=== PATIENT | male | born 1975 | race Two or more races ===

== ENCOUNTER 2020-09-19 17:50 | Emergency (ER) | payer OTHER, SELFPAY ==
[2020-09-19 18:16] VITALS: BP 154/83; PULSE 79; RESP 20; TEMP 36.3; O2SAT 99; BMI 24.0
[2020-09-19 18:22] VITALS: RESP 20
--- NOTE | 2020-09-19 18:27 | PC.NURSE ---
Pt arrived w/ ems, cooperative w/ changeover. Evaluated w/ learning and development assistant. Pt alert, affect even, reports hx depression and SI attempt- states he attempted to hang himself while living in [place], and then attempted to OD within past few months. Pt states he did not seek treatment for last attempt, but was hospitalized in [place]. Pt states he uses Heroin and cocaine occasionally- last used heroin 4 days ago. Pt states he uses intermittently, states that he is not dependent, does not anticipate withdrawal.
[2020-09-19 19:19] LABS: Amphetamine Screen Urine Not Detected (Not Detect); Barbiturates, Urine Not Detected (Not Detect); Benzodiazepines Screen Urine Not Detected (Not Detect); Cannabinoid Screen Urine Not Detected (Not Detect); Cocaine Screen Urine POSITIVE (Not Detect); Opiate Screen Urine POSITIVE (Not Detect); Phencyclidine Screen Urine Not Detected (Not Detect)
--- NOTE | 2020-09-19 19:50 | PC.NURSE ---
Patient wandering in hallway, expressing need well, calm, stable behavior, no distress reported, [facility] faxed/called/spoke with Juliana/confirmed receipt of referral/no ETA, will continue to monitor.
[2020-09-19 20:17] LABS: Basophils Percent Auto 0.1 % (0-2); Eosinophils Absolute Auto 0.1 X10*3/uL (0.0-0.4); Eosinophils Percent Auto 1.4 % (0-4); Hematocrit 38.9 % (42-52); Hemoglobin 12.6 g/dl (14.0-18.0); Imm Gran Abs Auto 0.02 X10*3/uL (0.00-0.03); Imm Gran Pct Auto 0.3 % (0.0-0.4); Lymphocytes Absolute Auto 2.1 X10*3/uL (1.2-4.9); MANUAL DIFF FLAG NO; Mean Corpuscular HGB Conc 32.4 g/dl (31.0-36.0); Mean Corpuscular Hemoglobin 26.7 pg (27.0-33.0); Mean Corpuscular Volume 82.4 fL (80-98); Mean Platelet Volume 8.6 fL (9.4-12.4); Monocytes Absolute Auto 0.8 X10*3/uL (0.1-1.2); Monocytes Percent Auto 11.3 % (2-11); Neutrophils Absolute Auto 4.2 X10*3/uL (2.0-8.3); Neutrophils Percent Auto 57.9 % (45-73); Platelet Count 290 X10*3/uL (160-400); Red Blood Count 4.72 X10*6/uL (4.60-5.80); Red Cell Distribution Width 17.2 % (11.0-16.0); White Blood Count 7.3 X10*3/uL (4.8-10.8)
[2020-09-19 20:30] LABS: COVID-19 Test Negative (Negative); IDNOW Serial# 9DD0AD1C
[2020-09-19 20:34] LABS: Ethanol < 10 mg/dL
[2020-09-19 20:37] LABS: Acetaminophen LAB < 1 mcg/mL (<30); Alanine Aminotransferase 44 U/L (0-40); Albumin Level 4.6 g/dL (3.5-5.0); Alkaline Phosphatase 60 U/L (39-117); Anion Gap 13 (12-20); Aspartate Amino Transferase 33 U/L (5-37); Bilirubin Total 0.3 mg/dL (0.0-1.0); Blood Urea Nitrogen 7 mg/dL (9-16); Calcium 9.1 mg/dL (8.4-10.2); Carbon Dioxide 30 mmol/L (22-29); Chloride 100 mmol/L (96-108); Creatinine Clr Calc Pharmacy 97.6; Estimated Glomerular Filt Rate > 60; Glucose Random 81 mg/dL (60-115); Potassium 4.2 mmol/l (3.3-5.1); Salicylate < 5.0 mg/dL (15-30); Sodium 139 mmol/L (135-145); Total Protein 7.8 g/dL (6.5-8.0)
--- NOTE | 2020-09-19 20:47 | PC.NURSE ---
DANIELA called again/spoke with Rachel/updated the lab results/notified that patient will be seen at 2300, patient made aware, will continue to monitor.
--- NOTE | 2020-09-19 20:52 | ED_ITS ---
HPI - Psych General Chief Complaint: Psychiatric Symptoms Stated Complaint: si with plan Time Seen by Provider: 09/19/20 18:02 Source: patient Mode of arrival: ambulatory Limitations: no limitations History of Present Illness HPI Narrative: Patient comes emergency room complaining of worsening depression. Patient states his depression has been gotten worse over the last month and half. Patient states he has been having problems with his ex-, she is not allowing him to see his child. Patient states that he is planning to overdose. MD complaint: suicidal ideation and feels depressed Related Data Home Medications Medication Instructions Recorded Confirmed atorvastatin 40 mg tablet 40 mg PO DAILY 09/07/20 divalproex 500 mg tablet,delayed 1,000 mg PO BEDTIME tab 09/07/20 release docusate sodium 100 mg capsule 100 mg PO BID PRN 09/07/20 duloxetine 60 mg capsule,delayed 60 mg PO DAILY 09/07/20 release fenofibrate nanocrystallized 145 145 mg PO DAILY 09/07/20 mg tablet haloperidol 20 mg tablet 20 mg PO BEDTIME 09/07/20 haloperidol 5 mg tablet 5 mg PO DAILY 09/07/20 mecobalamin (vitamin B12) 1,000 1,000 mcg PO DAILY 09/07/20 mcg chewable tablet methocarbamol 750 mg tablet 750 mg PO QID PRN 09/07/20 omega-3 fatty acids-fish oil 360 3 cap PO DAILY cap 09/07/20 mg-1,200 mg capsule omeprazole 20 mg capsule,delayed 20 mg PO DAILY 09/07/20 release prazosin 5 mg capsule 5 mg PO BEDTIME 09/07/20 Previous Rx's Medication Instructions Recorded gabapentin 300 mg capsule 600 mg PO TID 30 Days #180 cap 07/27/20 multivitamin 1 tab PO DAILY 30 Days #30 tab 09/07/20 clonazepam 0.5 mg tablet 0.5 mg PO TID PRN 30 Days #90 tab 09/08/20 tramadol 50 mg tablet 50 mg PO Q8H PRN 30 Days #90 tab 09/08/20 Allergies Allergy/AdvReac Type Severity Reaction Status Date / Time No Known Allergies Allergy Verified 08/15/20 06:43 [No Known Allergies*] Review of Systems Review of Systems: Constitutional : No Weight loss, No Fever, No Chills, No Night Sweats, No Fatigue, No Malaise ENT/Mouth : No Hearing loss, No Ear Pain, No Nasal Congestion, No Sinus Pain, No Hoarseness, No sore throat, No Rhinorrhea, No Swallowing Difficulty Eyes: No Eye Pain, No Swelling, No Redness, No Foreign Body, No Discharge, No Vision Changes Cardiovascular : No Chest Pain, No SOB, No Dyspnea on Exertion, No Orthopnea, No Edema, No Palpitations Respiratory : No Cough, No Sputum, No Wheezing, No Smoke Exposure, No Dyspnea Gastrointestinal : No Nausea, No Vomiting, No Diarrhea, No Constipation, No abdominal Pain, No Hematochezia, No Melena Genitourinary : no irregular bleeding, No Dysuria, No Urinary Frequency, No Hematuria, No Urinary Incontinence, No Urgency, No Flank Pain, No Urinary Flow Changes, No Hesitancy Musculoskeletal : No joint pain, No Myalgias, No Joint Swelling Skin : No Skin Lesions, No rash Neuro : No Weakness, No Numbness, No Paresthesias, No Loss of Consciousness, No Dizziness, No Headache Psych : Patient complaining of depression, suicidal ideation, no homicidal ideation Heme/Lymph: No Bruising, No Bleeding,No Lymphadenopathy Endocrine : No Polyuria, No Polydipsia, No Temperature Intolerance [facility] Past Medical History Medical History (Updated 09/19/20 @ 21:03 by Lili Montgomery MD) Auditory hallucinations Depression Psychotic disorder Surgical History (Updated 08/15/20 @ 06:43 by SANTOS Arevalo) History of lumbar fusion Family History Family History (Updated 08/15/20 @ 06:44 by SANTOS Arevalo) Father No problems noted. Mother Hypertension Social History Social History Smoking Status: Current every day smoker Use of substances other than those prescribed or required for medical reasons: Yes Substance Use Type: Crack/Cocaine and Heroin Substance Use Frequency: Occasionally Last Used Substance: Days (ago) Advance Directives: No Advance Directives Information Provided: Yes Physical Exam Vital Signs: Vital Signs: Last Vital Signs Temp 97.4 F 09/19/20 18:16 Pulse 79 09/19/20 18:16 Resp 20 09/19/20 18:22 BP 154/83 H 09/19/20 18:16 Pulse Ox 99 09/19/20 18:16 Body Mass Index 24.0 Appearance: Alert. Oriented X3. No acute distress. Eyes: Pupils equal, round and reactive to light. ENT: Pharynx normal. Neck: Normal inspection. Neck supple. No lymph nodes noted. No crepitus CVS: Normal heart rate and rhythm. Pulses normal. Normal S1 and S2 Respiratory: No respiratory distress. Breath sounds normal. No Wheezing. No r ales Abdomen: Soft and nontender. No rigidity. No distention. good BS x4 Skin: Skin warm and dry. Normal skin color. Normal skin turgor. Extremities: No lower extremity edema. No lower extremity edema. No Lacerations. No Rash Neuro: Oriented X 3. No motor deficit. No sensory deficit. Moving all extermities. No slurred speech. Course Course Course Narrative: Behavioral health network consult pending MDM - Psych Restraints Face to Face Assessment: Face to Face Assessment: Current Situation: After assessment of the patient, a review of the pertinent medical record and a discussion with nursing staff, I feel the patient requires a restrain intervention. Reaction To: [] Medical Condition: [] Behavioral State: [] Continued Need: [] Lab Data Result diagrams: 09/19/20 20:07 09/19/20 20:08 Labs: Lab Results 09/19/20 09/19/20 09/19/20 Range/Units 18:38 20:07 20:07 WBC 7.3 (4.8-10.8) X10*3/uL RBC 4.72 (4.60-5.80) X10*6/uL Hgb 12.6 L (14.0-18.0) g/dl Hct 38.9 L (42-52) % MCV 82.4 (80-98) fL MCH 26.7 L (27.0-33.0) pg MCHC 32.4 (31.0-36.0) g/dl RDW 17.2 H (11.0-16.0) % Plt Count 290 (160-400) X10*3/uL MPV 8.6 L (9.4-12.4) fL Immature Gran % (Auto) 0.3 (0.0-0.4) % Neut % (Auto) 57.9 (45-73) % Lymph % (Auto) 29.0 (20-40) % [place] % (Auto) 11.3 H (2-11) % Eos % (Auto) 1.4 (0-4) % Baso % (Auto) 0.1 (0-2) % Lymph # (Auto) 2.1 (1.2-4.9) X10*3/uL [place] # (Auto) 0.8 (0.1-1.2) X10*3/uL Eos # (Auto) 0.1 (0.0-0.4) X10*3/uL Baso # (Auto) 0.0 (0.0-0.2) X10*3/uL Abs Immat Gran (auto) 0.02 (0.00-0.03) X10*3/uL Absolute Neuts (auto) 4.2 (2.0-8.3) X10*3/uL Absolute Nucleated RBC 0.000 (0.0-0.012) X10*3/uL Nucleated RBC % (auto) 0.0 (0.0-0.2) /100WBC Sodium (135-145) mmol/L Potassium (3.3-5.1) mmol/l Chloride (96-108) mmol/L Carbon Dioxide (22-29) mmol/L Anion Gap (12-20) BUN (9-16) mg/dL Creatinine (0.5-1.4) mg/dL Estim Creat Clear Calc Estimated GFR Random Glucose (60-115) mg/dL Calcium (8.4-10.2) mg/dL Total Bilirubin (0.0-1.0) mg/dL AST (5-37) U/L ALT (0-40) U/L Alkaline Phosphatase (39-117) U/L Total Protein (6.5-8.0) g/dL Albumin (3.5-5.0) g/dL Salicylates (15-30) mg/dL Urine Opiates Screen POSITIVE H (Not Detect) Acetaminophen (<30) mcg/mL Ur Barbiturates Screen Not Detected (Not Detect) Ur Phencyclidine Scrn Not Detected (Not Detect) Ur Amphetamines Screen Not Detected (Not Detect) U Benzodiazepines Scrn Not Detected (Not Detect) Urine Cocaine Screen POSITIVE H (Not Detect) U Marijuana (THC) Screen Not Detected (Not Detect) Ethyl Alcohol mg/dL COVID-19 (BEN) Negative (Negative) COVID-19 Clin Com See Note 09/19/20 09/19/20 Range/Units 20:08 20:08 WBC (4.8-10.8) X10*3/uL RBC (4.60-5.80) X10*6/uL Hgb (14.0-18.0) g/dl Hct (42-52) % MCV (80-98) fL MCH (27.0-33.0) pg MCHC (31.0-36.0) g/dl RDW (11.0-16.0) % Plt Count (160-400) X10*3/uL MPV (9.4-12.4) fL Immature Gran % (Auto) (0.0-0.4) % Neut % (Auto) (45-73) % Lymph % (Auto) (20-40) % [place] % (Auto) (2-11) % Eos % (Auto) (0-4) % Baso % (Auto) (0-2) % Lymph # (Auto) (1.2-4.9) X10*3/uL [place] # (Auto) (0.1-1.2) X10*3/uL Eos # (Auto) (0.0-0.4) X10*3/uL Baso # (Auto) (0.0-0.2) X10*3/uL Abs Immat Gran (auto) (0.00-0.03) X10*3/uL Absolute Neuts (auto) (2.0-8.3) X10*3/uL Absolute Nucleated RBC (0.0-0.012) X10*3/uL Nucleated RBC % (auto) (0.0-0.2) /100WBC Sodium 139 (135-145) mmol/L Potassium 4.2 (3.3-5.1) mmol/l Chloride 100 (96-108) mmol/L Carbon Dioxide 30 H (22-29) mmol/L Anion Gap 13 (12-20) BUN 7 L (9-16) mg/dL Creatinine 0.80 (0.5-1.4) mg/dL Estim Creat Clear Calc 97.6 Estimated GFR > 60 Random Glucose 81 (60-115) mg/dL Calcium 9.1 (8.4-10.2) mg/dL Total Bilirubin 0.3 (0.0-1.0) mg/dL AST 33 (5-37) U/L ALT 44 H (0-40) U/L Alkaline Phosphatase 60 (39-117) U/L Total Protein 7.8 (6.5-8.0) g/dL Albumin 4.6 (3.5-5.0) g/dL Salicylates < 5.0 L (15-30) mg/dL Urine Opiates Screen (Not Detect) Acetaminophen < 1 (<30) mcg/mL Ur Barbiturates Screen (Not Detect) Ur Phencyclidine Scrn (Not Detect) Ur Amphetamines Screen (Not Detect) U Benzodiazepines Scrn (Not Detect) Urine Cocaine Screen (Not Detect) U Marijuana (THC) Screen (Not Detect) Ethyl Alcohol < 10 mg/dL COVID-19 (BEN) (Negative) COVID-19 Clin Com Discharge Plan Discharge Prescriptions: No Action gabapentin 300 mg capsule 600 mg PO TID 30 Days Qty: 180 RF: 12 omega-3 fatty acids-fish oil [Fish Oil] 360-1,200 mg capsule 3 cap PO DAILY RF: 0 haloperidol 5 mg tablet 5 mg PO DAILY RF: 0 haloperidol 20 mg tablet 20 mg PO BEDTIME RF: 0 divalproex 500 mg tablet,delayed release (DR/EC) 1,000 mg PO BEDTIME RF: 0 prazosin 5 mg capsule 5 mg PO BEDTIME RF: 0 mecobalamin (vitamin B12) 1,000 mcg tablet,chewable 1,000 mcg PO DAILY RF: 0 fenofibrate nanocrystallized 145 mg tablet 145 mg PO DAILY RF: 0 methocarbamol 750 mg tablet 750 mg PO QID PRNRF: 0 duloxetine 60 mg capsule,delayed release(DR/EC) 60 mg PO DAILY RF: 0 docusate sodium 100 mg capsule 100 mg PO BID PRN (Reason: constipation) RF: 0 atorvastatin 40 mg tablet 40 mg PO DAILY RF: 0 omeprazole 20 mg capsule,delayed release(DR/EC) 20 mg PO DAILY RF: 0 multivitamin Tablet 1 tab PO DAILY 30 Days Qty: 30 RF: 4 tramadol 50 mg tablet 50 mg PO Q8H PRN (Reason: pain) 30 Days Qty: 90 RF: 0 clonazepam 0.5 mg tablet 0.5 mg PO TID PRN (Reason: anxiety) 30 Days Qty: 90 RF: 0
[2020-09-19 21:58] VITALS: BP 127/59; PULSE 76; RESP 18; TEMP 36.5; O2SAT 96
--- NOTE | 2020-09-19 22:26 | PC.NURSE ---
Patient med rec completed by pharmacy/provider notified/pending MAR update.
--- NOTE | 2020-09-20 01:11 | PC.NURSE ---
Patient assessment completed by N with disposition section 12 in-patient bed search, patient & provider made aware, patient currently in bed appears sleeping, no distress observed/reported, respiration +/=/non-labored bilaterally, will continue to monitor.
[2020-09-20 06:34] VITALS: BP 109/57; PULSE 68; RESP 16; TEMP 36.4; O2SAT 97
--- NOTE | 2020-09-20 07:12 | PC.NURSE ---
Report received from NELLY Harvey. Pt resting, resp unlabored.
[2020-09-20 09:41] VITALS: BP 114/67; PULSE 70; TEMP 36.6; O2SAT 97
--- NOTE | 2020-09-20 09:59 | PC.NURSE ---
Reviewed pt medication w/ pharmacy: will wait to administer until further verified by pharmacy. Pt resting in room, awakened for breakfast, affect even. Pt encouraged to eat prior to receiving medications.
[2020-09-20 10:00] VITALS: RESP 16
--- NOTE | 2020-09-20 10:31 | PC.NURSE ---
received call from pharmacy- medications confirmed as noted currently on NOV.
[2020-09-20] MEDS: Atorvastatin Calcium 40 MG TABLET PO (10:32)
[2020-09-20] MEDS: Cyanocobalamin (Vitamin B-12) 1,000 MCG TABLET 1000 MCG PO (10:32)
[2020-09-20] MEDS: DULoxetine HCl 60 MG CAPSULE.DR PO (10:32)
[2020-09-20] MEDS: Omeprazole 20 MG CAPSULE.DR PO (10:32)
[2020-09-20] MEDS: Multivitamin TABLET 1 TAB PO (10:32)
[2020-09-20] MEDS: Fenofibrate 160 MG TABLET PO (10:40)
--- NOTE | 2020-09-20 11:23 | PC.NURSE ---
Pt evaluated w/ radiologist chief of breast imaging. Reports feeling very depressed, but denies pain, or any physical symptoms. Pt is aware that he is awaiting inpatient bed, unclear when one will be available. No further questions asked, no concerns reported.
[2020-09-20 12:00] VITALS: PULSE 16
--- NOTE | 2020-09-20 12:51 | PC.NURSE ---
Pt awake, reporting withdrawal from opiates, + nausea- C Toro aware. Pt does not give permission to speak w/ family at this time.
[2020-09-20] MEDS: LORazepam 1 MG TABLET PO (13:00)
--- NOTE | 2020-09-20 13:06 | PC.NURSE ---
Pt reporting nausea, chills. C Cortez aware, pt medicated as ordered. Surendra called from care team to evaluate pt for interest in starting suboxone.
--- NOTE | 2020-09-20 13:34 | PC.NURSE ---
Pt evaluated by care team for possibility of starting suboxone. Pt is interested in doing so. Pt reports good effect from medications given, ate small amount of lunch, no further vomiting.
--- NOTE | 2020-09-20 13:59 | PC.NURSE ---
REPORT TO NELLY LEMUS AT [facility].
--- NOTE | 2020-09-20 14:57 | MHC.RECOVSUP ---
Recovery Support note: Patient is a 45 year old Argentine speaking male who presented to [facility] ED due to SI with plan. Patient was evaluated by N and is currently awaiting a psychiatric bed. Discussed withdrawal and Suboxone with patient. Patient was familiar with Suboxone and was willing to give it a try. Patient understands that he would have to continue taking the medication daily to prevent withdrawal and cravings. Discussed the CCC with patient and MAT. Patient reports no questions at this time regarding Suboxone initiation. Patient expressed a desire to leave the hospital. Explained to patient that this was not an option due to the circumstances that brought him to the ED and that he would greatly benefit from psychiatric care. Patient reports a desire to stay locally for treatment. Informed RN of the contents of this consultation and informed ED provider that patient is interested in starting Suboxone.
--- NOTE | 2020-09-20 15:22 | PC.NURSE ---
Radiologic Technician in. Pt notified that he will be transferring to [facility]. Questions answered as asked. No concerns reported. Pt reports he is feeling much better from the Ativan/Zofran given. No further vomiting.
== END 2020-09-20 16:19 ==
PROVIDERS: Emergency Provider Emergency Medicine; PCP Internal Medicine
DX: F33.1 Major depressive disorder, recurrent, moderate (principal); R45.851 Suicidal ideations; F11.10 Opioid abuse, uncomplicated; F14.10 Cocaine abuse, uncomplicated; Z20.828 Contact with and (suspected) exposure to other viral communicable diseases; Z79.899 Other long term (current) drug therapy; F17.200 Nicotine dependence, unspecified, uncomplicated; Z71.6 Tobacco abuse counseling
CPT/HCPCS: 36415; 80053; 80307; 80320; 85025; 87635; 99285; G0480

== ENCOUNTER 2021-04-30 15:33 | Emergency (ER) | payer OTHER, SELFPAY ==
--- NOTE | 2021-04-30 15:44 | ED.OVERDOSE ---
HPI - Overdose General Chief Complaint: Overdose Stated Complaint: OD UNRESPONSIVE Time Seen by Provider: 04/30/21 15:42 Source: EMS Mode of arrival: EMS Limitations: no limitations History of Present Illness HPI Narrative: 46-year-old male with past medical history that is significant for major depressive disorder, auditory hallucinations, substance abuse preferred nasal heroin and surgical history of lumbar fusion he presents via EMS from the field with complaint of unintentional overdose on heroin. It is reported that patient was found minimally responsive in a stationary vehicle by bystanders who subsequently called PD whom found patient minimally responsive with somewhat agonal breathing at rate of 6 and was administered 4 mg of nasal Narcan he improved subsequently EMS was called he remained still very drowsy and lethargic subsequently given 2 additional mg of Narcan IM which he had a positive response so he awoke and admitted to snorting 1 bag of heroin just short time prior to the event. This was for recreational purposes. He denies any alcohol use, no other drug use. He offers no complaints upon arrival he is using his cellphone states ?I am fine?. complaint: accidental overdose Onset (ago): minute(s) Timing confirmed by: other (Bystanders) Context: Accidental Overdose: wanted to get high Treatments Prior to Arrival: narcan Related Data Home Medications Medication Instructions Recorded Confirmed divalproex 500 mg tablet,delayed 1,000 mg PO BEDTIME tab 09/07/20 09/19/20 release docusate sodium 100 mg capsule 100 mg PO BID PRN 09/07/20 09/19/20 duloxetine 60 mg capsule,delayed 60 mg PO DAILY 09/07/20 09/19/20 release haloperidol 20 mg tablet 20 mg PO DAILY 09/07/20 09/19/20 haloperidol 5 mg tablet 5 mg PO DAILY 09/07/20 09/19/20 omega-3 fatty acids-fish oil 360 3 cap PO DAILY cap 09/07/20 09/19/20 mg-1,200 mg capsule (Fish Oil) prazosin 5 mg capsule 5 mg PO BEDTIME 09/07/20 09/19/20 olanzapine 10 mg tablet 10 mg PO BEDTIME 09/20/20 09/20/20 Previous Rx's Medication Instructions Recorded multivitamin 1 tab PO DAILY 30 Days #30 tab 11/11/20 omeprazole 20 mg capsule,delayed 20 mg PO DAILY #30 cap 12/03/20 release atorvastatin 40 mg tablet 40 mg PO DAILY #30 tab 12/30/20 fenofibrate nanocrystallized 145 145 mg PO DAILY #30 tab 12/30/20 mg tablet cyanocobalamin (vitamin B-12) 1,000 mcg PO DAILY 90 Days #90 tab 01/09/21 1,000 mcg tablet,extended release clonazepam 0.5 mg tablet 0.5 mg PO TID PRN 30 Days #90 tab 04/26/21 tramadol 50 mg tablet 50 mg PO Q8H PRN 30 Days #90 tab 04/26/21 Allergies Allergy/AdvReac Type Severity Reaction Status Date / Time No Known Allergies Allergy Verified 08/15/20 06:43 [No Known Allergies*] Review of Systems Review of Systems: Constitutional: No Weight loss, No Fever, No Chills, No Night Sweats, No Fatigue, No Malaise ENT/Mouth: No Hearing loss, No Ear Pain, No Nasal Congestion, No Sinus Pain, No Hoarseness, No sore throat, No Rhinorrhea, No Swallowing Difficulty Eyes: No Eye Pain, No Swelling, No Redness, No Foreign Body, No Discharge, No Vision Changes Cardiovascular: No Chest Pain, No SOB, No Dyspnea on Exertion, No Orthopnea, No Edema, No Palpitations Respiratory: No Cough, No Sputum, No Wheezing, No Dyspnea Gastrointestinal: No Nausea, No Vomiting, No Diarrhea, No Constipation, No abdominal Pain, No Hematochezia, No Melena Genitourinary: No Dysuria, No Urinary Frequency, No Hematuria, No Urinary Incontinence, No Urgency, No Flank Pain, No Urinary Flow Changes, No Hesitancy Musculoskeletal: No joint pain, No Myalgias, No Joint Swelling Skin: No Skin Lesions, No rash Neuro: No Weakness, No Numbness, No Paresthesias, No Loss of Consciousness, No Dizziness, No Headache Psych: No Anxiety/Panic, No Depression, No SI/HI/AH/VH Heme/Lymph: No Bruising, No Bleeding,No Lymphadenopathy Endocrine: No Polyuria, No Polydipsia, No Temperature Intolerance [facility] Past Medical History Medical History (Updated 04/30/21 @ 16:40 by Hood Selby NP) Auditory hallucinations Depression Heroin abuse Psychotic disorder Surgical History History of lumbar fusion Family History Family History (Updated 08/15/20 @ 06:44 by Bruna Blakely [facility]) Father No problems noted. Mother Hypertension Social History Social History Substance Use Type: Crack/Cocaine and Heroin Advance Directives: No Advance Directives Information Provided: No Physical Exam Vital Signs: Vital Signs: Last Vital Signs Temp 97.7 F 04/30/21 15:46 Pulse 120 H 04/30/21 15:46 Resp 18 04/30/21 15:46 BP 133/73 04/30/21 15:46 Pulse Ox 98 04/30/21 15:46 Body Mass Index 26.9 Const: General: cooperative and healthy appearing; No acute distress or intoxicated appearing Nutritional Appearance: average body habitus Orientation/consciousness: patient oriented x3 HENMT: Head: Yes normal to inspection Ears: hearing grossly normal bilaterally Eyes: General: appearance normal, both eyes and all related structures Visual Jones: normal visual jones by confrontation Neck: Neck: Yes normal visual inspection, No positive Brudzinski's sign, No positive Kernig's sign and No tender Thyroid: Thyroid normal Chest: Chest palpation & inspection: normal inspection of the chest Resp: Effort & Inspection: normal respiratory effort Auscultation: clear to auscultation bilaterally Cardio: Jugular venous distension: no JVD Rate: regular rate Rhythm: regular rhythm Heart sounds: S1 normal heart sound present and S2 normal heart sound present GI: Inspection: Yes normal to inspection Percussion: Yes normal to percussion Auscultation: normal bowel sounds : General: Yes no CVA tenderness Back/Spine/Pelvis: Back: no CVA tenderness Skin: General skin exam: no rashes or lesions noted Neuro: General: patient oriented x3 Extrem: General: Yes normal to inspection Course Reevaluation(s) Reevaluation #1: Patient observed for over an hour has remained awake sitting up eating drinking conversing with his family his as well as his kids are here. He met with head tennis coach she does not want to go to detox. He will follow up on outpatient basis. We will discharge him with home safety instruction return follow-up instructions. Stable for discharge. Discharge Plan Discharge Clinical Impression: Drug overdose Qualifiers: Encounter type: initial encounter Injury intent: accidental or unintentional Qualified Code(s): T50.901A - Poisoning by unspecified drugs, medicaments and biological substances, accidental (unintentional), initial encounter Patient Disposition: Home, Self-Care Instructions: Adult Overdose (ED), Narcotic Use Disorder (ED) Additional Instructions: Please stop known illicit drugs is seen cause serious harm to health and cause Please see detox Please follow up with her primary care doctor Please return if any concerns or worsening symptoms Thank you Prescriptions: No Action omega-3 fatty acids-fish oil [Fish Oil] 360-1,200 mg capsule 3 cap PO DAILY RF: 0 haloperidol 5 mg tablet 5 mg PO DAILY RF: 0 haloperidol 20 mg tablet 20 mg PO DAILY RF: 0 divalproex 500 mg tablet,delayed release (DR/EC) 1,000 mg PO BEDTIME RF: 0 prazosin 5 mg capsule 5 mg PO BEDTIME RF: 0 duloxetine 60 mg capsule,delayed release(DR/EC) 60 mg PO DAILY RF: 0 docusate sodium 100 mg capsule 100 mg PO BID PRN (Reason: constipation) RF: 0 multivitamin Tablet 1 tab PO DAILY 30 Days Qty: 30 RF: 4 omeprazole 20 mg capsule,delayed release(DR/EC) 20 mg PO DAILY Qty: 30 RF: 4 fenofibrate nanocrystallized 145 mg tablet 145 mg PO DAILY Qty: 30 RF: 4 atorvastatin 40 mg tablet 40 mg PO DAILY Qty: 30 RF: 5 cyanocobalamin (vitamin B-12) 1,000 mcg tablet extended release 1,000 mcg PO DAILY 90 Days Qty: 90 RF: 3 tramadol 50 mg tablet 50 mg PO Q8H PRN (Reason: pain) 30 Days Qty: 90 RF: 0 clonazepam 0.5 mg tablet 0.5 mg PO TID PRN (Reason: anxiety) 30 Days Qty: 90 RF: 0 olanzapine 10 mg tablet 10 mg PO BEDTIME RF: 0 Referrals: Jean Valderrama MD [Primary Care Provider] - 1 day Interventions: ED Discharge Assessment Last Done: 04/30/21 16:43 Discharge Date/Time: 04/30/21 16:45
[2021-04-30 15:46] VITALS: BP 133/73; BP 168/87; PULSE 120; PULSE 140; RESP 18; TEMP 36.5; O2SAT 98; BMI 26.9
--- NOTE | 2021-04-30 16:34 | MHC.RECOVSUP ---
Recovery Support note: Patient is a 46 year old Guamanian speaking male who presented to [facility] ED after an accidental overdose. This fiction writer met with patient with an [facility] patternmaker metal bench to discuss his substance use and treatment options. Patient declines this fiction writer's offer to discuss his substance use. Patient reports he is doing good and does not feel like he needs information on treatment programs or community supports. Informed patient that there is help out there if he ever feels he has a problem to reach out for support. Patient acknowledged.
== END 2021-04-30 16:45 | disposition home or self-care (01) ==
PROVIDERS: Emergency Provider Internal Medicine; PCP Internal Medicine
DX: T40.1X1A Poisoning by heroin, accidental (unintentional), initial encounter (principal); R40.4 Transient alteration of awareness; Y92.810 Car as the place of occurrence of the external cause; F19.10 Other psychoactive substance abuse, uncomplicated; F32.9 Major depressive disorder, single episode, unspecified; Z79.899 Other long term (current) drug therapy
CPT/HCPCS: 99283

== ENCOUNTER 2021-07-31 15:09 | Outpatient (REF) | payer OTHER, SELFPAY ==
[2021-07-31 17:55] LABS: Amphetamine Screen Urine Not Detected (Not Detect); Barbiturates, Urine Not Detected (Not Detect); Benzodiazepines Screen Urine Not Detected (Not Detect); Cannabinoid Screen Urine Not Detected (Not Detect); Cocaine Screen Urine POSITIVE (Not Detect); Fentanyl, urine POSITIVE (Not Detect); Opiate Screen Urine POSITIVE (Not Detect); Phencyclidine Screen Urine Not Detected (Not Detect)
== END 2021-07-31 15:10 | disposition home or self-care (01) ==
LOC: HO.LAB 15:09
PROVIDERS: PCP Internal Medicine; Visit Provider Internal Medicine
DX: F19.10 Other psychoactive substance abuse, uncomplicated (principal)
CPT/HCPCS: 80307

== ENCOUNTER → 2021-10-24 10:00 | Outpatient (BNVA) | payer OTHER, SELFPAY | PROVIDERS: PCP Internal Medicine; Visit Provider Internal Medicine | DX: F11.20 Opioid dependence, uncomplicated (principal) | CPT/HCPCS: 80305; 99202 ==

== ENCOUNTER → 2021-10-31 10:00 | Outpatient (BNVA) | payer OTHER, SELFPAY | PROVIDERS: PCP Internal Medicine; Visit Provider Internal Medicine | DX: Z51.81 Encounter for therapeutic drug level monitoring (principal); F11.20 Opioid dependence, uncomplicated | CPT/HCPCS: 80305; 99211 ==

== ENCOUNTER → 2021-11-06 09:50 | Outpatient (BNVA) | payer OTHER, SELFPAY | PROVIDERS: Visit Provider Internal Medicine | DX: Z51.81 Encounter for therapeutic drug level monitoring (principal); F11.20 Opioid dependence, uncomplicated | CPT/HCPCS: 80305; 99211 ==

== ENCOUNTER → 2021-11-14 14:16 | Outpatient (BNVA) | payer OTHER, SELFPAY | PROVIDERS: Visit Provider Internal Medicine | DX: Z51.81 Encounter for therapeutic drug level monitoring (principal); F11.20 Opioid dependence, uncomplicated | CPT/HCPCS: 80305 ==

== ENCOUNTER → 2021-11-20 14:48 | Outpatient (BNVA) | payer OTHER, SELFPAY | PROVIDERS: Visit Provider Internal Medicine | DX: F11.20 Opioid dependence, uncomplicated (principal) | CPT/HCPCS: 80305 ==

== ENCOUNTER → 2021-12-04 15:24 | Outpatient (BNVA) | payer OTHER, SELFPAY | PROVIDERS: Visit Provider Internal Medicine | DX: Z51.81 Encounter for therapeutic drug level monitoring (principal) ==

== ENCOUNTER → 2021-12-19 14:52 | Outpatient (BNVA) | payer OTHER, SELFPAY | PROVIDERS: Visit Provider Internal Medicine | DX: F11.20 Opioid dependence, uncomplicated (principal); Z51.81 Encounter for therapeutic drug level monitoring; Z79.899 Other long term (current) drug therapy | CPT/HCPCS: 80305; 99212 ==

== ENCOUNTER → 2022-01-03 10:02 | Outpatient (BNVA) | payer OTHER, SELFPAY | PROVIDERS: Visit Provider Internal Medicine | DX: F11.20 Opioid dependence, uncomplicated (principal) | CPT/HCPCS: 80305; 99212 ==

== ENCOUNTER → 2022-01-31 10:03 | Outpatient (BNVA) | payer OTHER, SELFPAY | PROVIDERS: Visit Provider Internal Medicine | DX: Z51.81 Encounter for therapeutic drug level monitoring (principal); F11.20 Opioid dependence, uncomplicated | CPT/HCPCS: 80305; 99212 ==

== ENCOUNTER 2022-02-05 09:44 | Outpatient (REF) | payer OTHER, SELFPAY ==
[2022-02-05 10:22] LABS: MANUAL DIFF FLAG NO
[2022-02-05 11:07] LABS: Basophils Percent Auto 0.2 % (0-2); Eosinophils Absolute Auto 0.3 X10*3/uL (0.0-0.4); Eosinophils Percent Auto 4.4 % (0-4); Hematocrit 39.5 % (42.0-52.0); Hemoglobin 13.7 g/dl (14.0-18.0); Imm Gran Abs Auto 0.01 X10*3/uL (0.00-0.03); Imm Gran Pct Auto 0.2 % (0.0-0.4); Lymphocytes Absolute Auto 2.7 X10*3/uL (1.2-4.9); Mean Corpuscular HGB Conc 34.7 g/dl (31.0-36.0); Mean Corpuscular Hemoglobin 30.2 pg (27.0-33.0); Mean Platelet Volume 9.5 fL (9.4-12.4); Monocytes Absolute Auto 0.9 X10*3/uL (0.1-1.2); Monocytes Percent Auto 15.1 % (2-11); Neutrophils Absolute Auto 1.9 x10*3/uL (2.0-8.3); Neutrophils Percent Auto 33.1 % (45-73); Platelet Count 235 X10*3/uL (160-400); Red Blood Count 4.54 X10*6/uL (4.60-5.80); Red Cell Distribution Width 12.7 % (11.0-16.0); White Blood Count 5.7 X10*3/uL (4.8-10.8)
[2022-02-05 11:25] LABS: Estimated Average Glucose 117 mg/dL; Hemoglobin A1c % 5.7 %
[2022-02-05 11:32] LABS: Alanine Aminotransferase 78 U/L (0-40); Albumin Level 4.5 g/dL (3.5-5.0); Alkaline Phosphatase 48 U/L (39-117); Anion Gap 11 (12-20); Aspartate Amino Transferase 48 U/L (5-37); Bilirubin Total 0.4 mg/dL (0.0-1.0); Blood Urea Nitrogen 13 mg/dL (9-16); Calcium 9.6 mg/dL (8.4-10.2); Carbon Dioxide 27 mmol/L (22-29); Chloride 105 mmol/L (96-108); Cholesterol 126 mg/dL; Estimated Glomerular Filt Rate > 60; Glucose Fasting 85 mg/dL (60-99); HDL Cholesterol 27 mg/dL; LDL Cholesterol Calculated 71 mg/dl; Potassium 4.4 mmol/L (3.3-5.1); Sodium 139 mmol/L (135-145); Total Protein 7.7 g/dL (6.5-8.0); Triglycerides 143 mg/dL
[2022-02-05 11:55] LABS: TSH reflex Free T4 2.41 uIU/mL (0.32-4.0); Vitamin D 25-OH Total 28.9 ng/mL (>30)
[2022-02-05 12:00] LABS: Appearance Urine CLEAR; Color Urine YELLOW; Glucose Urine UA NEG (NEG); Leukocyte Esterase Urine NEG (NEG); Nitrite Urine NEG (NEG); Specific Gravity - Urine 1.025 (1.005-1.025); Urine Blood NEG (NEG); Urine Ketones NEG (NEG); Urine Protein NEG (NEG-TRACE)
[2022-02-05 12:17] LABS: Folate > 20.0 ng/mL (> or = 4.0); Vitamin B12 817 pg/mL (200-900)
== END 2022-02-05 09:45 | disposition home or self-care (01) ==
LOC: HO.LAB 09:44
PROVIDERS: PCP Internal Medicine; Visit Provider Internal Medicine
DX: I10 Essential (primary) hypertension (principal); R73.01 Impaired fasting glucose; E78.00 Pure hypercholesterolemia, unspecified; E53.8 Deficiency of other specified B group vitamins; E55.9 Vitamin D deficiency, unspecified
CPT/HCPCS: 36415; 80053; 80061; 81003; 82306; 82607; 82746; 83036; 84443; 85025

== ENCOUNTER → 2022-03-02 14:43 | Outpatient (BNVA) | payer OTHER, SELFPAY | PROVIDERS: PCP Internal Medicine; Visit Provider Internal Medicine | DX: F11.20 Opioid dependence, uncomplicated (principal) | CPT/HCPCS: 80305; 99212 ==

== ENCOUNTER → 2022-03-30 15:15 | Outpatient (BNVA) | payer OTHER, SELFPAY | PROVIDERS: Visit Provider Internal Medicine | DX: Z51.81 Encounter for therapeutic drug level monitoring (principal); F11.20 Opioid dependence, uncomplicated | CPT/HCPCS: 80305; 99212 ==

== ENCOUNTER → 2022-04-27 14:04 | Outpatient (BNVA) | payer OTHER, SELFPAY | PROVIDERS: PCP Internal Medicine; Visit Provider Internal Medicine | DX: F11.20 Opioid dependence, uncomplicated (principal); Z51.81 Encounter for therapeutic drug level monitoring; Z79.899 Other long term (current) drug therapy | CPT/HCPCS: 99212 ==

== ENCOUNTER 2023-02-12 09:43 | Outpatient (REF) | payer OTHER, SELFPAY ==
[2023-02-12 10:15] LABS: MANUAL DIFF FLAG NO
[2023-02-12 10:23] LABS: Basophils Absolute Auto 0.1 X10*3/uL (0.0-0.2); Basophils Percent Auto 0.6 % (0-2); Eosinophils Absolute Auto 0.3 X10*3/uL (0.0-0.4); Eosinophils Percent Auto 3.1 % (0-4); Hemoglobin 15.4 g/dl (14.0-18.0); Imm Gran Abs Auto 0.03 X10*3/uL (0.00-0.03); Imm Gran Pct Auto 0.3 % (0.0-0.4); Lymphocytes Absolute Auto 3.6 X10*3/uL (1.2-4.9); Lymphocytes Percent Auto 39.8 % (20-40); Mean Corpuscular HGB Conc 34.2 g/dl (31.0-36.0); Mean Corpuscular Hemoglobin 30.6 pg (27.0-33.0); Mean Corpuscular Volume 89.5 fL (80.0-98.0); Mean Platelet Volume 9.1 fL (9.4-12.4); Monocytes Absolute Auto 1.2 X10*3/uL (0.1-1.2); Monocytes Percent Auto 13.4 % (2-11); Neutrophils Absolute Auto 3.9 x10*3/uL (2.0-8.3); Neutrophils Percent Auto 42.8 % (45-73); Platelet Count 237 X10*3/uL (160-400); Red Blood Count 5.03 X10*6/uL (4.60-5.80); Red Cell Distribution Width 12.7 % (11.0-16.0); White Blood Count 9.1 X10*3/uL (4.8-10.8)
[2023-02-12 10:34] LABS: Estimated Average Glucose 120 mg/dL; Hemoglobin A1c % 5.8 %
[2023-02-12 11:13] LABS: Alanine Aminotransferase 151 U/L (0-40); Albumin Level 4.8 g/dL (3.5-5.0); Alkaline Phosphatase 54 U/L (39-117); Anion Gap 15 (12-20); Aspartate Amino Transferase 97 U/L (5-37); Bilirubin Total 0.4 mg/dL (0.0-1.0); Blood Urea Nitrogen 12 mg/dL (9-16); Calcium 10.1 mg/dL (8.4-10.2); Carbon Dioxide 25 mmol/L (22-29); Chloride 105 mmol/L (96-108); Cholesterol 141 mg/dL; Estimated Glomerular Filt Rate > 60; Glucose Fasting 95 mg/dL (60-99); HDL Cholesterol 26 mg/dL; LDL Cholesterol Calculated 58 mg/dl; Potassium 4.5 mmol/L (3.3-5.1); Sodium 140 mmol/L (135-145); Total Protein 8.5 g/dL (6.5-8.0); Triglycerides 286 mg/dL
[2023-02-12 11:25] LABS: Appearance Urine Clear; Color Urine Yellow; Glucose Urine UA Negative (Negative); Leukocyte Esterase Urine Negative (Negative); Nitrite Urine Negative (Negative); PH 5.5 (5.0-9.0); Specific Gravity - Urine 1.025 (1.005-1.025); Urine Blood Negative (Negative); Urine Ketones Negative (Negative); Urine Protein Negative (Neg-Trace)
[2023-02-12 11:28] LABS: Folate 18.1 ng/mL (> or = 4.0); Prostate Specific Antigen Scr 0.23 ng/mL (<0.05-4.0); TSH reflex Free T4 2.04 uIU/mL (0.32-4.0); Vitamin B12 863 pg/mL (200-900); Vitamin D 25-OH Total 41.9 ng/mL (>30)
== END 2023-02-12 09:44 | disposition home or self-care (01) ==
LOC: HO.LAB 09:43
PROVIDERS: PCP Internal Medicine; Visit Provider Internal Medicine
DX: Z00.00 Encounter for general adult medical examination without abnormal findings (principal); E78.00 Pure hypercholesterolemia, unspecified; E55.9 Vitamin D deficiency, unspecified; E53.8 Deficiency of other specified B group vitamins; R73.01 Impaired fasting glucose; R30.0 Dysuria
CPT/HCPCS: 36415; 80053; 80061; 81003; 82306; 82607; 82746; 83036; 84153; 84443; 85025

== ENCOUNTER → 2023-03-06 14:09 | Outpatient (BNVA) | payer OTHER, SELFPAY | PROVIDERS: PCP Internal Medicine; Visit Provider Nurse Practitioner | DX: Z01.818 Encounter for other preprocedural examination (principal) | CPT/HCPCS: 99202 ==

== ENCOUNTER 2023-05-17 10:22 | Outpatient (REF) | payer OTHER, SELFPAY ==
[2023-05-17 13:18] LABS: Alanine Aminotransferase 70 U/L (0-40); Albumin Level 4.3 g/dL (3.5-5.0); Alkaline Phosphatase 45 U/L (39-117); Anion Gap 14 (12-20); Aspartate Amino Transferase 39 U/L (5-37); Bilirubin Total 0.3 mg/dL (0.0-1.0); Blood Urea Nitrogen 17 mg/dL (9-16); Calcium 9.8 mg/dL (8.4-10.2); Carbon Dioxide 24 mmol/L (22-29); Chloride 105 mmol/L (96-108); Cholesterol 134 mg/dL (<200); Estimated Glomerular Filt Rate > 60; Glucose Fasting 116 mg/dL (60-99); HDL Cholesterol 24 mg/dL (>40); Potassium 4.3 mmol/L (3.3-5.1); Sodium 139 mmol/L (135-145); Total Protein 8.2 g/dL (6.5-8.0); Triglycerides 528 mg/dL (<150)
== END 2023-05-17 10:23 | disposition home or self-care (01) ==
LOC: HO.LAB 10:22
PROVIDERS: PCP Internal Medicine; Visit Provider Internal Medicine
DX: E78.00 Pure hypercholesterolemia, unspecified (principal)
CPT/HCPCS: 36415; 80053; 80061

== ENCOUNTER 2023-10-18 14:33 | Outpatient (REF) | payer MEDICAID, SELFPAY ==
[2023-10-18 17:05] LABS: Alanine Aminotransferase 35 U/L (0-40); Albumin Level 4.4 g/dL (3.5-5.0); Alkaline Phosphatase 55 U/L (39-117); Aspartate Amino Transferase 27 U/L (5-37); Bilirubin Direct < 0.1 mg/dL (0.0-0.5); Bilirubin Total 0.3 mg/dL (0.0-1.0); Total Protein 8.7 g/dL (6.5-8.0)
[2023-10-21 04:10] LABS: Hepatitis A Antibody IgG REACTIVE (Nonreactive); ~Hepatitis A Antibody IgG 9.54 S/CO (0.00-0.99)
[2023-10-21 04:19] LABS: HBS Num1 2.91 mIU/mL (0-7.99); HBc Num1 0.09 S/CO (0.00-0.79); Hepatitis B Core Antibody Nonreactive (Nonreactive); Hepatitis B Surface Antigen Negative (Negative); ~HepC Num1 17.67 S/CO (0.00-0.79); ~Hepatitis B Surface Antibody NONREACTIVE (Nonreactive); ~Hepatitis C Antibody Reactive (Nonreactive)
[2023-10-21 04:37] LABS: HIV AB/AG Nonreactive (Nonreactive); HIV Num 1 0.08 S/CO (0.00-0.99)
[2023-10-21 10:13] LABS: RPR Rapid Plasma Reagin NON-REACTIVE (NON-REACTIVE)
[2023-10-21 12:39] LABS: TS Negative Control Passed; TS Panel A 0; TS Panel B 0; TS Positive Control Passed; TSpotTB Negative (Negative)
[2023-10-23 18:59] LABS: HCV Log PCR 6.15 Log IU/mL (NOT DETECTED); HepC Viral Load 1410000 IU/mL (NOT DETECTED)
== END 2023-10-18 14:34 | disposition home or self-care (01) ==
LOC: HO.HHCL 14:33
PROVIDERS: Visit Provider Emergency Medicine
DX: Z11.4 Encounter for screening for human immunodeficiency virus [HIV] (principal); Z11.1 Encounter for screening for respiratory tuberculosis; F11.20 Opioid dependence, uncomplicated
CPT/HCPCS: 36415; 80076; 86481; 86592; 86704; 86706; 86708; 86803; 87340; 87389; 87522

== ENCOUNTER 2023-10-22 14:50 | Outpatient (AMB) | payer MEDICAID, SELFPAY ==
[2023-10-22 15:07] VITALS: BP 138/86; PULSE 96; O2SAT 94; BMI 29.6
--- NOTE | 2023-10-22 15:07 | MHC.PC.OV ---
Vital Signs 10/22/23 15:07 Height 5 ft 4 in Weight 172 lb 4 oz BMI 29.6 BP 138/86 Blood Pressure Location Lt brachial Position Sitting Pulse 96 Pulse Source Pulse Oximeter Pulse Oximetry (%) 94 Oxygen Delivery Method Room Air Intake Visit Reasons: Medication Follow Up Plate Stacker Required: Yes Accompanied by: Self / Same As Patient Allergies No Known Allergies [No Known Allergies*] Allergy (Verified 10/22/23 15:38) Medication List - Last Reconciled 10/22/23 by Jean Valderrama MD atorvastatin 40 mg PO DAILY cetirizine 10 mg PO DAILY PRN cholecalciferol (vitamin D3) 50 mcg PO DAILY 90 days clonazepam 0.5 mg PO TID PRN 30 days cyanocobalamin (vitamin B-12) ER 1,000 mcg PO DAILY 90 days famotidine 20 mg PO BID 15 days hydroxyzine HCl 25 mg PO TID PRN 30 days melatonin 10 mg PO BEDTIME PRN 30 days montelukast 10 mg PO QPM multivitamin 1 tab PO DAILY 90 days omega-3 fatty acids-fish oil 360-1,200 mg (Fish Oil) 3 caps PO DAILY 30 days prednisone 20 mg PO DAILY 5 days tramadol 50 mg PO TID PRN 5 days triamcinolone acetonide 0.5% 1 appl topical BID PRN Tobacco use date assessed: 10/22/23 Dental Screening Dental Screen Date: 10/22/23 Did you have a dental visit in the last 12 months?: No Did you have a dental problem in the last 6 months where you did not have access to dental care?: No Was dental information given to patient?: No HPI Medication Follow Up HPI Details Patient comes in today for his follow up visit - has not been back since February 2023 States that he currently feels okay He denies any headaches or dizziness Denies any chest pains, no SOB No nausea/vomiting, no abdominal pain No change in bowel habits noted Still has chronic low back pain but states that his back pain is adequately managed Adds that he has severe dryness of the skin on the bottom of his feet lately and would like to get something to help with this Needs his Multivitamins Rx refilled Had some labs done last week but these were limited to a liver panel and did not include his fasting lipids [facility] Medical History Obesity (BMI 30-39.9) Insomnia Overweight (BMI 25.0-29.9) Smoker Bipolar depression Vitamin B12 deficiency Constipation GERD without esophagitis Lumbar degenerative disc disease Impaired fasting glucose Mixed hyperlipidemia Opioid use disorder Heroin abuse Auditory hallucinations Psychotic disorder Depression Surgical History History of lumbar fusion Family History Father No problems noted. Mother Hypertension Social History Housing: Apartment Alcohol intake: former Patient Tobacco Use Status: Current everyday Tobacco user Cigarettes Per Day: 5 Years Smoked: 1 e-Cigarette/Vaping Use: Never Used Second Hand Smoke Exposure: No Substance Use Type: Crack/Cocaine and Heroin service: No Current occupational status: unemployed Cognitive needs: No Hearing needs: No Vision needs: No Questionnaire PHQ-9 Over the last 2 weeks, how often have you been bothered by any of the following problems? 1. Little interest or pleasure in doing things: not at all 2. Feeling down, depressed, or hopeless: not at all 3. Trouble falling or staying asleep, or sleeping too much: not at all 4. Feeling tired or having little energy: not at all 5. Poor appetite or overeating: not at all 6. Feeling bad about yourself - or that you are a failure or have let yourself or your family down: not at all 7. Trouble concentrating on things, such as reading the newspaper or watching television: not at all 8. Moving or speaking so slowly that other people could have noticed. Or the opposite - being so fidgety or restless that you have been moving around a lot more than usual: not at all 9. Thoughts that you would be better off or of hurting yourself in some way: not at all Total score: 0 Depression Screening Interpretation: Negative Depression Screening Done: Yes 08889 - PHQ-9 Billing: Yes Source: Developed by Drs. Hiram Ruiz, Sue Cerda, Christiano Talley and colleagues, with an educational lizabeth from [employer]. Thrive Questionnaire Date Thrive assessed: 10/22/23 I am a: Patient What is your living situation today?: I have a steady place to live Within the past 12 months, did the food you bought not last and you didn't have the money to get more?: Never true Within the past 12 months, did you worry whether your food would run out before you got money to buy more?: Never true Do you have trouble paying for medicines?: No Do you have trouble getting transportation to medical appointments?: No Do you have trouble paying your heating and electricity bill?: No Do you have trouble taking care of your child, family member or friend?: No Do you have trouble with day-to-day activities such as bathing, preparing meals, shopping, managing finances, etc.?: No Are you currently unemployed and looking for a job?: No Are you interested in more education?: No Please select the resources that you would like help with: None Currently or been in a relationship where the following occur: no concerns reported THRIVE Score: 0 AUDIT C Alcohol Use Questionnaire (AUDIT-C) 1. How often do you have a drink containing alcohol?: Never 3. How often do you have six or more drinks on one occasion?: Never Total Score: 0 Score Reviewed/Action Taken: Yes GERRI-7 AMB Questionnaire GERRI-7 Date GERRI - 7 assessed: 10/22/23 Feeling nervous, anxious, or on edge: 0 = Not at all Not being able to stop or control worryin = Not at all Worrying too much about different things: 0 = Not at all Trouble relaxin = Not at all Being so restless that it is hard to sit still: 0 = Not at all Becoming easily annoyed or irritable: 0 = Not at all Feeling afraid as if something awful might happen: 0 = Not at all Total GERRI-7 score (0-4 normal; 5-9 mild; 10-14 moderate; 15-21 severe): 0 Source: Developed by Drs. Hiram Ruiz, Sue Cerda, Christiano Talley and colleagues, with an educational lizabeth from [employer]. Review of Systems Const Denies chills, Reports fatigue, Denies fever(s) and Denies headache(s) ENT Denies dysphagia, Denies dizziness, Denies otalgia, Denies headache(s), Denies nasal congestion, Denies neck pain, Denies odynophagia and Denies sore throat Card Denies chest pain, Denies palpitations and Denies dyspnea Resp Denies cough, Denies dyspnea and Denies wheezing GI Denies abdominal pain, Denies constipation, Denies dysphagia, Denies heartburn, Denies diarrhea, Denies nausea, Denies odynophagia and Denies vomiting Denies dysuria, Denies nocturia and Denies urinary frequency Musc Reports back pain (over the lumbar spine - chronic) and Denies neck pain Skin/Breast Reports dry skin (severe, on the bottom of his feet) and Denies rash Neuro Denies dizziness and Denies headache(s) Psych Reports anxiety Endo Reports fatigue and Denies palpitations Aller/Immun Denies wheezing Physical exam (Primary Care) Vital Signs: Last Vital Signs Pulse 96 10/22/23 15:07 BP 138/86 10/22/23 15:07 Pulse Ox 94 10/22/23 15:07 Oxygen Delivery Method Room Air 10/22/23 15:07 BMI result Body Mass Index 29.6 Tobacco/Smoking Status: Tobacco use Status Tobacco use date assessed 10/22/23 10/22/23 15:09 Patient Tobacco Use Status Current everyday Tobacco 10/22/23 15:09 e-Cigarette/Vaping Use Never Used 10/22/23 15:09 PHQ-9: PHQ-9 Score PHQ-9: Total score 0 10/22/23 15:21 Depression Screening Interpretation: Negative Thrive Assessment: Date of Thrive Assessment Date Thrive assessed 10/22/23 10/22/23 15:09 Currently or been in a relationship where the following occur: no concerns reported Const General: no acute distress and alert HENMT Ears: TM's normal bilaterally and EAC's normal Throat: Yes posterior oropharynx normal and Yes tonsils normal (no TP congestion) Neck Neck: Yes no lymphadenopathy and Yes supple Resp Auscultation: clear to auscultation bilaterally, no rales and no wheezes Cardio Rate: regular rate Rhythm: regular rhythm Heart sounds: no murmurs GI Palpation (GI): Soft to palpation and nontender Auscultation: normal bowel sounds General: Yes no CVA tenderness Back/Spine/Pelvis Back: no CVA tenderness Thoracic/Lumbar Spine: lumbar spinal tenderness Skin General skin exam: dry skin (especially over the soles of both feet) Extrem General: Yes no clubbing, cyanosis or edema Results Reviewed Results Reviewed: Laboratory Tests 10/18/23 14:36 Total Bilirubin 0.3 Direct Bilirubin < 0.1 AST 27 ALT 35 Assessment and Plan Assessment & Plan (1) Mixed hyperlipidemia: Code(s): E78.2 - Mixed hyperlipidemia Plan: Advised that his serum triglyceride level has increased significantly again when it was last checked in April 2023; he has not been able to get it rechecked since Will have him try to get these done MARY JANE - labs ordered Reinforced low cholesterol diet He is advised to continue taking OTC Fish Oil capsules daily as they seem to have helped him with his high triglyceride level in the past Will recheck his fasting lipids and labs in 4 months for follow up (2) Elevated LFTs: Code(s): R79.89 - Other specified abnormal findings of blood chemistry Plan: Results of his labs done a few days ago reviewed and discussed with patient - advised that his LFTs are normal on his recent labs Will continue to monitor his LFTs closely (3) Impaired fasting glucose: Code(s): R73.01 - Impaired fasting glucose Plan: Reinforced low calorie diet/exercise as tolerated HgbA1c was at 5.8% on his labs when checked last year; was also normal at 5.7% back in January 2022 (4) Lumbar degenerative disc disease: Code(s): M51.36 - Other intervertebral disc degeneration, lumbar region Plan: Reinforced activity and weight-lifting restrictions He was [place] [facility] [place] a while but not in the past couple of years Continue Tramadol 50 mg TID PRN for pain (5) Constipation: Code(s): K59.00 - Constipation, unspecified Qualifiers: Constipation type: unspecified constipation type Qualified Code(s): K59.00 - Constipation, unspecified Plan: Most likely related to his opioid use; is currently on Suboxone, which can also cause constipation Encouraged increased oral fluis and dietary fiber Continue Colace 100 mg BID PRN (6) Vitamin B12 deficiency: Code(s): E53.8 - Deficiency of other specified B group vitamins Plan: Continue Vitamin B12 1000 mcg QD (7) Substance abuse: Comment: multiple substances, including heroin and cocaine Code(s): F19.10 - Other psychoactive substance abuse, uncomplicated Plan: Continue Suboxone 8-2 mg 2 films QD [facility] (Dr. Jin) as scheduled (8) Insomnia: Comment: Multifactorial Code(s): G47.00 - Insomnia, unspecified Qualifiers: Insomnia type: unspecified Qualified Code(s): G47.00 - Insomnia, unspecified Plan: Sleep hygiene reinforced Continue Melatonin 10 mg Q HS PRN (9) Anxiety: Code(s): F41.9 - Anxiety disorder, unspecified Plan: Continue Clonazepam 0.5 mg TID PRN (10) Bipolar depression: Code(s): F31.9 - Bipolar disorder, unspecified Plan: Follow up with psychiatry at the [facility] as scheduled Patient used to be on Haldol 5 mg Q AM and 20 mg Q PM as well as Depakote ER 500 mg 2 tablets Q HS and Prazosin 5 mg 4 capsules Q HS - does not appear that these are still being continued by psychiatry at this time (11) Smoker: Code(s): F17.200 - Nicotine dependence, unspecified, uncomplicated Plan: Counseled again on smoking cessation (12) Obesity (BMI 30-39.9): Code(s): E66.9 - Obesity, unspecified Plan: Reinforced diet/exercise as tolerated/lose weight although he is limited in terms of activity and exercise tolerance due to his lower back issues Plan Follow up as scheduled in April 2023 Orders: Orders Comprehensive [place]. Panel Fast 4 Months E78.00 - Pure hypercholesterolemia, unspecified Lipid Panel 4 Months E78.00 - Pure hypercholesterolemia, unspecified Lipid Panel Today E78.00 - Pure hypercholesterolemia, unspecified Hemoglobin A1c Today R73.01 - Impaired fasting glucose Medications: New ammonium lactate 5% (Lac-Hydrin Five) 1 appl topical BID PRN 226 grams 1RF dry skin Refilled multivitamin 1 tab PO DAILY 90 days 90 tabs 3RF Coding Level of Care Code Est Pt Level 4 (45737) Diagnoses Mixed hyperlipidemia E78.2 Elevated LFTs R79.89 Impaired fasting glucose R73.01 Lumbar degenerative disc disease M51.36 Constipation, unspecified constipation type K59.00 Constipation type: unspecified constipation type Vitamin B12 deficiency E53.8 Substance abuse F19.10 Insomnia, unspecified type G47.00 Insomnia type: unspecified Anxiety F41.9 Bipolar depression F31.9 Smoker F17.200 Obesity (BMI 30-39.9) E66.9
== END 2023-10-22 15:52 | disposition home or self-care (01) ==
PROVIDERS: PCP Internal Medicine; Visit Provider Internal Medicine
DX: E78.2 Mixed hyperlipidemia (principal); F19.10 Other psychoactive substance abuse, uncomplicated; F31.9 Bipolar disorder, unspecified; R79.89 Other specified abnormal findings of blood chemistry; R73.01 Impaired fasting glucose; M51.36 Other intervertebral disc degeneration, lumbar region; K59.00 Constipation, unspecified; E53.8 Deficiency of other specified B group vitamins; G47.00 Insomnia, unspecified; F41.9 Anxiety disorder, unspecified; F17.200 Nicotine dependence, unspecified, uncomplicated; E66.9 Obesity, unspecified
CPT/HCPCS: 99214

== ENCOUNTER 2025-03-28 12:11 | Inpatient (IN) | payer MEDICAID, SELFPAY ==
[2025-03-28] VITALS (13 sets, daily range): BP systolic 117–148; BP diastolic 60–91; PULSE 88–130; RESP 18–36; TEMP 37.7–39.7; O2SAT 93–99; BMI 25.6
--- NOTE | ~2025-03-28 | CT_ITS ---
CLINICAL HISTORY: change mental status after fall CT HEAD WITHOUT CONTRAST Comparison: None provided Findings: Despite multiple attempts, there is motion artifact on multiple acquisitions. No acute intracranial hemorrhage, extra-axial fluid collection, hydrocephalus or midline shift. No significant atrophy-like change. No significant white matter disease. Normal variant cavum septum pellucidum and cavum vergae. Incidental small arachnoid cyst in the left middle cranial fossa. There is no sinus or mastoid fluid. Visualized orbits: No acute abnormalities. There is no acute fracture. IMPRESSION: 1. Motion affected study. No definite acute intracranial process. This document has been electronically signed by: Eleni Vital DO on 03/28/2025 15:11:33
--- NOTE | ~2025-03-28 | CT_ITS ---
EXAMINATION: CT CHEST WITHOUT IV CONTRAST INDICATION: follow up PNA, as recommended on CXR COMPARISON: Correlation is made with AP portable views of the chest dated 03/28/2025. TECHNIQUE: Helical CT scan of the chest was performed without intravenous contrast. Coronal and sagittal reformatted images were generated and reviewed. This CT exam was performed with one or more of the following dose reduction techniques: automated exposure control, adjustment of the mA and/or kV according to patient size, use of iterative reconstruction technique. DLP: 157 mGy-cm CHEST: THYROID: The thyroid is unremarkable. LUNGS: There are patchy airspace opacities in the right middle lobe and in both lower lobes, left greater than right, consistent with pneumonia. MEDIASTINUM: There is no mediastinal lymphadenopathy. ELDON: Evaluation of the hilar regions is limited by lack of intravenous contrast material. CARDIOVASCULATURE: The heart is normal in size. There is no pericardial effusion. The thoracic aorta is normal in caliber. DEGREE OF CORONARY CALCIFICATION: none PLEURA: There is no pleural effusion. No pneumothorax. MAIN AIRWAYS: The mainstem bronchi and proximal branches are patent. AXILLA: There is no axillary lymphadenopathy. BONES AND SOFT TISSUES: Unremarkable UPPER ABDOMEN: The visualized portions of the liver, spleen, and adrenals have an unremarkable unenhanced appearance. CT/CT chest wo IV con IMPRESSION: Multifocal pneumonia in the right middle lobe and bilateral lower lobes. Follow-up is recommended after treatment to document resolution. Electronically signed by: Hiram Purdy MD 03/29/2025 12:35 PM EDT
--- NOTE | ~2025-03-28 | XR_ITS ---
CLINICAL HISTORY: change mental status 1 view chest x-ray Comparison: None provided Findings: There are nodular opacities in the bilateral lower lobes. There are patchy airspace opacities in the left lower lobe. No pleural effusion or pneumothorax. Normal size heart. No acute fracture. IMPRESSION: 1. Left lower lobe infiltrates. 2. Indeterminate bilateral lower lobe pulmonary nodules. Recommend follow-up CT chest. This document has been electronically signed by: Eleni Vital DO on 03/28/2025 15:01:01
--- NOTE | 2025-03-28 12:27 | ECG_ITS ---
Test Reason : TACHYCARDIA Blood Pressure : */* mmHG Vent. Rate : 119 BPM Atrial Rate : 119 BPM P-R Int : 138 ms QRS Dur : 68 ms QT Int : 284 ms P-R-T Axes : 70 65 56 degrees QTcB Int : 399 ms Sinus tachycardia Otherwise normal ECG When compared with ECG of 22-Oct-2019 18:00, ST no longer elevated in Inferior leads Referred By: Jennifer Mejía Electronically Signed By: Jun Durham
--- NOTE | 2025-03-28 12:29 | ED_ITS ---
HPI - Fall General Chief Complaint: ETOH/Substance Use Stated Complaint: FALL A FEW DAYS AGO Time Seen by Provider: 03/28/25 12:17 Source: patient, family ( sister), EMS and old records reviewed Mode of arrival: EMS Limitations: no limitations History of Present Illness ED Provider: DR. Mejía HPI Narrative: 50-year-old male with history of polysubstance abuse, brought in by EMS and family after he was found lethargic, semi responsive, patient admitted to smoking crack, patient is lethargic but arousable to verbal stimuli able to report that he fell in the morning, patient with superficial left facial contusions, bilateral knee contusions. Related Data Previous Rx's ?Medication ?Instructions ?Recorded famotidine 20 mg tablet 20 mg PO BID rash and itchin g 15 02/28/23 days #30 tabs prednisone 20 mg tablet 20 mg PO DAILY 5 days #5 tab s 02/28/23 tramadol 50 mg tablet 50 mg PO TID PRN pain 5 days #15 02/28/23 tabs cholecalciferol (vitamin D3) 50 50 mcg PO DAILY 90 day s #90 caps 04/05/23 mcg (2,000 unit) capsule triamcinolone acetonide 0.5 % 1 appl topical BID PRN r cherelle and 09/09/23 topical cream itching #60 grams ammonium lactate 5 % lotion 1 appl topical BID PRN dry skin 10/22/23 (Lac-Hydrin Five) #226 grams multivitamin 1 tab PO DAILY 90 days #90 t abs 10/22/23 cetirizine 10 mg tablet 10 mg PO DAILY PRN for itch #90 11/15/23 tabs hydroxyzine HCl 25 mg tablet 25 mg PO TID PRN anxiety 30 days 11/15/23 #90 tabs melatonin 10 mg tablet 10 mg PO BEDTIME PRN sleep 3 0 days 11/15/23 #30 tabs atorvastatin 40 mg tablet 40 mg PO DAILY #30 tabs 02/22 clonazepam 0.5 mg tablet 0.5 mg PO TID PRN anxiety 30 days 03/12/24 #90 tabs montelukast 10 mg tablet 10 mg PO QPM for itch #90 ta bs 03/12/24 cyanocobalamin (vitamin B-12) 1,000 mcg PO DAILY 90 da ys #90 tabs 03/13/24 1,000 mcg tablet,extended release omega-3 fatty acids-fish oil 360 3 cap PO DAILY 30 day s #90 caps 03/13/24 mg-1,200 mg capsule (Fish Oil) Allergies Allergy/AdvReac Type Severity Reaction Status Date / Time No Known Allergies (No Known Allergy Verified 03/28/25 12:31 Allergies*) Review of Systems 2 Review of Systems: All other systems are reviewed and are negative Constitutional: Reports as per HPI and Reports no additional constitutional complaints Eyes: Reports as per HPI and Reports no additional eye complaints Reports system reviewed and no additional complaints, except as documented Cardiovascular: Reports as per HPI and Reports no additional cardiovascular complaints Respiratory: Reports as per HPI and Reports no additional respiratory complaints Gastrointestinal: Reports as per HPI and Reports no additional gastrointestinal complaints Genitourinary: Reports no additional female genitourinary complaints Musculoskeletal: Reports no additional musculoskeletal complaints Skin/Breast: Reports system reviewed and no additional complaints, except as docu Psychiatric: Reports no additional psychiatric complaints Endocrine: Reports no additional endocrine complaints Hematologic/Lymphatic: Reports no additional hematologic/lymphatic complaints Allergic/Immunologic: Reports no additional allergic/immunologic complaints Reports system reviewed and no additional complaints, except as documented and Reports Abnormal speech present. [facility] Past Medical History Medical History Obesity (BMI 30-39.9) Insomnia Overweight (BMI 25.0-29.9) Smoker Bipolar depression Vitamin B12 deficiency Constipation GERD without esophagitis Lumbar degenerative disc disease Impaired fasting glucose Mixed hyperlipidemia Opioid use disorder Heroin abuse Auditory hallucinations Psychotic disorder Depression Surgical History History of lumbar fusion Family History Family History Father No problems noted. Mother Hypertension Social History Social History Housing: Apartment Alcohol intake: former Patient Tobacco Use Status: Current everyday Tobacco user Cigarettes Per Day: 5 Years Smoked: 1 Smoked in Last 30 Days: Yes e-Cigarette/Vaping Use: Never Used Second Hand Smoke Exposure: No Use of substances other than those prescribed or required for medical reasons: Yes Substance Use Type: Crack/Cocaine and Heroin Substance Use Frequency Other:: prior heroin, current crack Any prior treatment program specific to substance use: Yes ([facility]) Advance Directives: No Advance Directives Information Provided: No Do you have a plan to hurt others: No Plan service: No Current occupational status: unemployed Cognitive needs: No Hearing needs: No Vision needs: No Physical Exam 2 Vital Signs: Vital Signs: Last Vital Signs Pulse 130 H 03/28/25 14:15 Resp 30 H 03/28/25 14:15 BP 138/82 03/28/25 14:15 Pulse Ox 95 03/28/25 14:15 O2 Del Method Room Air 03/28/25 14:15 BMI result Body Mass Index 25.6 Appearance: Lethargic, responds to verbal stimuli,Oriented X1 to place. No acute distress. Head: Normal external exam. Normocephalic. Atraumatic. No Tapia signs noted. No raccoon eyes noted Eyes: Pinpoint pupil bilaterally, PERRLA. EOMI. Conjunctiva and sclera normal. Eyelids normal. ENT: TM's Normal. Pharynx normal. Uvula midline. Moist mucous membranes. No trismus noted. No drooling noted. No muffled voice noted. Neck: Normal inspection. Neck supple. FROM. No adenopathy. Thyroid Normal. No meningeal signs. No neck mass noted. CVS: Normal heart rate and rhythm. Heart sound normal. No murmurs noted. Pulses normal throughout. Respiratory: No respiratory distress. Painless inspiration. Breath sounds normal. No wheezes/rales/rhonchi noted. Chest nontender. No accessory muscle usage noted or decreased air movement noted. Abdomen: Soft and nontender. Bowel sounds normal in all 4 quadrants. No distention noted. No organomegaly noted. No visible injury noted. Back: No CVA tenderness. Full range of motion noted. Skin: Skin warm and dry. Normal skin color. Normal skin turgor. No rashes/lesions/lacerations noted. Extremities: No lower extremity edema. Extremities exhibit normal range of motion. Extremities nontender. Neuro: Lethargic, easily arousable. Cranial nerve exam: II-XII are grossly intact No motor deficit. No sensory deficit. Reflexes normal. Course Reevaluation(s) Reevaluation #1: infection/ sepsis is suspected now likely aspiration pneumonia. IV fluid/antibiotic. Patient is lethargic secondary to drug use and pneumonia, neuro exam is unremarkable with negative CT. Time: 15:19 Medications Administered Discontinued Medications Generic Name Dose Route Start Last Admin Trade Name Jyada PRN Reason Stop Dose Admin Naloxone HCl 4 mg 03/28/25 12:28 03/28/25 12:48 Naloxone Hcl Nasal 4 Mg [place] NOSTRILALT 03/28/25 12:29 4 mg ONCE ONE Administration Medical Decision Making Differential Diagnosis Differential Diagnoses: The differential diagnosis associated with the presentation includes ( pneumonia, pneumothorax, pleural effusion, traumatic intracranial bleed, electrolyte derangement, severe anemia, heroin overdose, cocaine overdose.) Admission/Observation Consideration of admission/observation: Escalation of care including admission/observation considered Consult Healthcare Provider Management of the patient was discussed with: Hospitalist ( Dr. Jay) Lab Data MDM Lab Attestation statement: I reviewed the patient's lab results. 03/28/25 12:50 03/28/25 12:50 Labs: Lab Results 03/28/25 03/28/25 03/28/25 Range/Units 12:50 14:15 14:21 WBC 16.3 H (4.8-10.8) X10*3/uL RBC 5.00 (4.60-5.80) X10*6/uL Hgb 15.3 (14.0-18.0) g/dl Hct 43.7 (42.0-52.0) % MCV 87.4 (80.0-98.0) fL MCH 30.6 (27.0-33.0) pg MCHC 35.0 (31.0-36.0) g/dl RDW 13.0 (11.0-16.0) % Plt Count 291 (160-400) X10*3/uL MPV 8.5 L (9.4-12.4) fL Immature Gran % (Auto) 0.4 (0.0-0.4) % Neut % (Auto) 80.8 H (45-73) % Lymph % (Auto) 10.3 L (20-40) % [place] % (Auto) 7.9 (2-11) % Eos % (Auto) 0.5 (0-4) % Baso % (Auto) 0.1 (0-2) % Lymph # (Auto) 1.7 (1.2-4.9) X10*3/uL [place] # (Auto) 1.3 H (0.1-1.2) X10*3/uL Eos # (Auto) 0.1 (0.0-0.4) X10*3/uL Baso # (Auto) 0.0 (0.0-0.2) X10*3/uL Abs Immat Gran (auto) 0.07 H (0.00-0.03) X10*3/uL Absolute Neuts (auto) 13.1 H (2.0-8.3) x10*3/uL Absolute Nucleated RBC 0.000 (0.0-0.012) X10*3/uL Nucleated RBC % (auto) 0.0 (0.0-0.2) /100WBC Sodium 141 (135-145) mmol/L Potassium 3.8 (3.3-5.1) mmol/L Chloride 103 (96-108) mmol/L Carbon Dioxide 28 (22-29) mmol/L Anion Gap 14 (12-20) BUN 17 H (9-16) mg/dL Creatinine 0.73 (0.5-1.4) mg/dL Estim Creat Clear Calc 93.4 Estimated GFR > 60 Random Glucose 106 (60-115) mg/dL Calcium 9.5 (8.4-10.2) mg/dL Total Bilirubin 0.4 (0.0-1.0) mg/dL Direct Bilirubin 0.2 (0.0-0.5) mg/dL AST 41 H (5-37) U/L ALT 23 (0-40) U/L Alkaline Phosphatase 61 (39-117) U/L Troponin I High Sens < 2.7 (<3.5-35.0) ng/L Total Protein 8.4 H (6.5-8.0) g/dL Albumin 4.9 (3.5-5.0) g/dL Lipase 23 (8-78) U/L Urine Color Yellow Urine Appearance Clear Urine pH 5.5 (5.0-9.0) Ur Specific [place] 1.020 (1.005-1.025) Urine Protein Negative (Neg-Trace) mg/dL Urine Glucose (UA) Negative (Negative) mg/dL Urine Ketones Negative (Negative) mg/dL Urine Blood Negative (Negative) Urine Nitrite Negative (Negative) Ur Leukocyte Esterase Negative (Negative) Urine Opiates Screen Not Detected (Not Detect) Ur Buprenorphine Scrn Not Detected (Not Detect) ng/mL Ur Oxycodone Screen Not Detected (Not Detect) ng/mL Urine Methadone Screen Not Detected (Not Detect) ng/mL Urine Fentanyl Screen Not Detected (Not Detect) Ur Barbiturates Screen Not Detected (Not Detect) Ur Phencyclidine Scrn Not Detected (Not Detect) Ur Amphetamines Screen Not Detected (Not Detect) U Benzodiazepines Scrn POSITIVE H (Not Detect) Urine Cocaine Screen POSITIVE H (Not Detect) U Marijuana (THC) Screen Not Detected (Not Detect) Independent Interpretation I performed an independent interpretation of an: Plain X-Ray ( chest: Left lower lobe pneumonia) and CT Scan ( head: No acute pathology.) Radiology Impression Discussion of test interpretation with radiology: I have reviewed the radiologist's reading. Critical Care Time Critical Care Time Critical Care Time: Yes Total Critical Care Time: 60 Attestation: The patient was critically ill with a high probability of imminent or life- threatening deterioration. I spent greater than 30 minutes of discontinuous time evaluating the patient, delivering critical care at the bedside, discussing evaluating data with consultants. Critical care time does not include time spent performing separately billable procedures or teaching. Time spent performing critical care was 60 minutes. Discharge Plan Discharge Clinical Impression: Aspiration pneumonia, Substance abuse Patient Disposition: Admitted As Inpatient Print Language: Kyrgyz
[2025-03-28] MEDS: Naloxone HCl Nasal 4 MG SPRAY NOSTRILALT (12:48)
[2025-03-28 12:55] LABS: MANUAL DIFF FLAG NO
[2025-03-28 13:02] LABS: Hematocrit 43.7 % (42.0-52.0); Hemoglobin 15.3 g/dl (14.0-18.0); Imm Gran Abs Auto 0.07 X10*3/uL (0.00-0.03); Imm Gran Pct Auto 0.4 % (0.0-0.4); Lymphocytes Absolute Auto 1.7 X10*3/uL (1.2-4.9); Mean Corpuscular HGB Conc 35.0 g/dl (31.0-36.0); Mean Corpuscular Hemoglobin 30.6 pg (27.0-33.0); Mean Corpuscular Volume 87.4 fL (80.0-98.0); NRBC Abs Auto 0.000 X10*3/uL (0.0-0.012); NRBC Pct Auto 0.0 /100WBC (0.0-0.2); Platelet Count 291 X10*3/uL (160-400); Red Blood Count 5.00 X10*6/uL (4.60-5.80); White Blood Count 16.3 X10*3/uL (4.8-10.8)
[2025-03-28 13:17] LABS: Alanine Aminotransferase 23 U/L (0-40); Albumin Level 4.9 g/dL (3.5-5.0); Alkaline Phosphatase 61 U/L (39-117); Anion Gap 14 (12-20); Aspartate Amino Transferase 41 U/L (5-37); Blood Urea Nitrogen 17 mg/dL (9-16); Calcium 9.5 mg/dL (8.4-10.2); Carbon Dioxide 28 mmol/L (22-29); Chloride 103 mmol/L (96-108); Creatinine Clr Calc Pharmacy 93.4; Estimated Glomerular Filt Rate > 60; Lipase 23 U/L (8-78); Potassium 3.8 mmol/L (3.3-5.1); Sodium 141 mmol/L (135-145); Total Protein 8.4 g/dL (6.5-8.0)
[2025-03-28 13:28] LABS: Troponin-I High Sensitivity < 2.7 ng/L (<3.5-35.0)
[2025-03-28 14:28] LABS: Appearance Urine Clear; Glucose Urine UA Negative (Negative); PH 5.5 (5.0-9.0); Specific Gravity - Urine 1.020 (1.005-1.025)
[2025-03-28 14:44] LABS: Cannabinoid Screen Urine Not Detected (Not Detect)
--- NOTE | 2025-03-28 15:50 | P.HPHOSP_ITS ---
History of Present Illness Date of Service: 03/28/25 Chief Complaint: ams 50M PMH polysubstance dependence (currently smokes crack, no longer using iv opiates), HCV s/p partial treatment, bipolar disorder, hypertrihylceridemia, presented with AMS. patient's family lives downstairs from him, were concerned so called EMS, patient found to be very lethargic, not responsive to narcan, noted to have new skin tear lesions on face and lower extremities that were not present day before. in ED patient is lethargic but easily rousable, meeting SIRS with tachycardia, leukocytosis, cxr with left sided opacities. Review of Systems 2 Review of Systems: Yes all other systems are reviewed and are negative [facility] Medical History Obesity (BMI 30-39.9) Insomnia Overweight (BMI 25.0-29.9) Smoker Bipolar depression Vitamin B12 deficiency Constipation GERD without esophagitis Lumbar degenerative disc disease Impaired fasting glucose Mixed hyperlipidemia Opioid use disorder Heroin abuse Auditory hallucinations Psychotic disorder Depression Family History Father No problems noted. Mother Hypertension Surgical History History of lumbar fusion Social History Housing: Apartment Alcohol intake: former Patient Tobacco Use Status: Current everyday Tobacco user Cigarettes Per Day: 5 Years Smoked: 1 Smoked in Last 30 Days: Yes e-Cigarette/Vaping Use: Never Used Second Hand Smoke Exposure: No Use of substances other than those prescribed or required for medical reasons: Yes Substance Use Type: Crack/Cocaine and Heroin Substance Use Frequency Other:: prior heroin, current crack Any prior treatment program specific to substance use: Yes ([facility]) Advance Directives: No Advance Directives Information Provided: No Do you have a plan to hurt others: No Plan service: No Current occupational status: unemployed Cognitive needs: No Hearing needs: No Vision needs: No Meds Allergies Allergy/AdvReac Type Severity Reaction Status Date / Time No Known Allergies (No Known Allergy Verified 03/28/25 12:31 Allergies*) Active Medications: Current Medications Acetaminophen (Acetaminophen 325 Mg Tablet) 650 mg PO Q6H PRN PRN Reason: Pain, Mild 1-3,fever,headache Calcium Carbonate (Calcium Carbonate 750 Mg Tab.Chew) 750 mg PO Q4H PRN PRN Reason: Heartburn Ceftriaxone Sodium (Ceftriaxone Sodium 1 Gm Vial) 1 gm IVPUSH Q24H LISA Diazepam (Diazepam 10 Mg/2 Ml Cartridge) 5 mg IVPUSH Q4H PRN PRN Reason: Anxiety Enoxaparin Sodium (Enoxaparin Sodium 40 Mg/0.4 Ml Syringe) 40 mg SUBCUT Q24H LISA Sodium Chloride (Ns) 1,000 mls @ 999 mls/hr IV .Q1H1M ONE Stop: 03/28/25 16:17 Doxycycline Hyclate 100 mg/ (Sodium Chloride) 250 mls @ 166.67 mls/hr IV ONCE ONE Stop: 03/28/25 16:46 Azithromycin 500 mg/ Sodium (Chloride) 250 mls @ 125 mls/hr IV Q24H [facility] Lactated Ringer's (Lr) 1,000 mls @ 80 mls/hr IVCONT .[id number] [facility] Magnesium Hydroxide (Milk Of Magnesia 30 Ml Oral.Susp) 30 ml PO DAILY PRN PRN Reason: Constipation Melatonin (Melatonin 3 Mg Tablet) 6 mg PO BEDTIME PRN PRN Reason: Insomnia Sodium Chloride (0.9 % Sodium Chloride Flush 3 Ml Syringe) 3 ml IVFLUSH QSHIFT [facility] Physical Exam 2 Vital Signs and Narrative: Vital Signs: Last Vital Signs Pulse 130 H 03/28/25 14:15 Resp 30 H 03/28/25 14:15 BP 138/82 03/28/25 14:15 Pulse Ox 95 03/28/25 14:15 O2 Del Method Room Air 03/28/25 14:15 BMI result Body Mass Index 25.6 General: lethargic O X 2, agitated Resp: crackles left side, no accessory muscles used CVS: S1,S2,RRR GI: soft, non tender, non distended Neuro: motor grossly intact, alert Psych: agitated skin tears Results Labs 03/28/25 12:50 03/28/25 12:50 Labs: Laboratory Results - last 24 hr 03/28/25 03/28/25 03/28/25 12:50 14:15 14:21 MCV 87.4 MCH 30.6 MCHC 35.0 RDW 13.0 Plt Count 291 MPV 8.5 L Immature Gran % (Auto) 0.4 Neut % (Auto) 80.8 H Lymph % (Auto) 10.3 L [place] % (Auto) 7.9 Eos % (Auto) 0.5 Baso % (Auto) 0.1 Lymph # (Auto) 1.7 [place] # (Auto) 1.3 H Eos # (Auto) 0.1 Baso # (Auto) 0.0 Abs Immat Gran (auto) 0.07 H Absolute Neuts (auto) 13.1 H Absolute Nucleated RBC 0.000 Nucleated RBC % (auto) 0.0 Anion Gap 14 Estim Creat Clear Calc 93.4 Estimated GFR > 60 Random Glucose 106 Calcium 9.5 Total Bilirubin 0.4 Direct Bilirubin 0.2 AST 41 H ALT 23 Alkaline Phosphatase 61 Troponin I High Sens < 2.7 Total Protein 8.4 H Albumin 4.9 Lipase 23 Urine Color Yellow Urine Appearance Clear Urine pH 5.5 Ur Specific [place] 1.020 Urine Protein Negative Urine Glucose (UA) Negative Urine Ketones Negative Urine Blood Negative Urine Nitrite Negative Ur Leukocyte Esterase Negative Urine Opiates Screen Not Detected Ur Buprenorphine Scrn Not Detected Ur Oxycodone Screen Not Detected Urine Methadone Screen Not Detected Urine Fentanyl Screen Not Detected Ur Barbiturates Screen Not Detected Ur Phencyclidine Scrn Not Detected Ur Amphetamines Screen Not Detected U Benzodiazepines Scrn POSITIVE H Urine Cocaine Screen POSITIVE H U Marijuana (THC) Screen Not Detected Assessment and Plan (1) Bipolar depression: Status: Acute Plan 50M PMH polysubstance dependence (currently smokes crack, no longer using iv opiates), HCV s/p partial treatment, bipolar disorder, hypertrihylceridemia, presented with AMS Sepsis and acute metabolic encephalopathy due to pneumonia, possible aspiration Ceftriaxone azithromycin, follow up cultures Polysubstance dependence Addiction eval History of hepatitis-C status post partial treatment Check hepatitis-C viral load Hypertriglyceridemia Continue statin and fenofibrate Suspect patient has been noncompliant with all meds over the last few months Bipolar disorder Likely will restart mood stabilizers when more alert DVT prophylaxis with Lovenox Full Code Quality Stroke Does the patient have a stroke diagnosis?: No VTE Prior VTE?: No VTE Risk Level:: Medical - moderate - high VTE Device Contraindication: Treatment Not Indicated VTE Drug Contraindication: N/A - Med Ordered
--- NOTE | 2025-03-28 15:51 | PC.NURSE ---
Delay of Abx due to difficulty obtaining IV access. Ultrasound IV Nurse to obtain access.
--- NOTE | 2025-03-28 15:52 | PC.NURSE ---
Ultrasound IV access obtained 20G in left AC by Francois VILLEGAS.
--- NOTE | 2025-03-28 16:21 | PC.NURSE ---
This Nurse took PT'S temp rectal temp, pt had temp of 103.5f PT medicated with Tylenol per Mar orders, this nurse explained to family why pt couldn't get warm blanket.
--- NOTE | 2025-03-28 16:29 | PHA.MEDREC ---
Addendum entered by Natalie Reilly [facility] 03/29/25 11:07: Spoke with patient and family at bedside again to confirm that he is not taking any medication at home. Original Note: Pharmacy Consult ? Medication Reconciliation Pharmacy has completed the medication reconciliation, spoke to patient's mother and sister who said pt was not taking any medications, hasn't filled any RX's since 09/2024 (which include: bupropion SR 150mg #60 for 30 ds, atrovastatin 20mg #30 for 30 ds, triamcinolone 0.1% cream #80/14, loratidine 10mg #30 dfor 30 ds, hydroxyzine HCl 10mg #90 for 30 ds).
[2025-03-28] MEDS: Lactated Ringers 1,000 ML 80 ML IVCONT (16:39)
--- NOTE | 2025-03-28 18:00 | PHA.PROG ---
Admission Date/Time: March 28, 2025 15:25 Indication: RESP Serum Creatinine - Last 168 Hours 03/28/25 12:50 Creatinine 0.73 Estimated CrCl and GFR - Last 168 Hours 03/28/25 12:50 Estim Creat Clear Calc 93.4 Estimated GFR > 60 Vancomycin Loading Dose: 1500 Current Vancomycin Dosing Regimen: 1000 Q 12H Vancomycin Monitoring using AUC goal of 400 - 600 range with trough as surrogate marker: 478 Date and Time for next Vancomycin Level to be drawn: 03/30 @ 0600 Pharmacist Comments on Vancomycin Plan: Vancomycin dosing will take advantage of [employer] as a clinical decision support tool that uses Bayesian modeling to calculate individual patient's pharmacokinetic parameters and forecast the patient's drug concentration time course with the target goal AUC 24 range of 400 - 600 mg/L/hr.
--- NOTE | 2025-03-28 22:30 | PC.NURSE ---
Pt assisted with the urinal 400ml output, pt medicated per NOV, LR still running pedro mcfarland within reach.
[2025-03-29] VITALS (7 sets, daily range): BP systolic 127–175; BP diastolic 80–99; PULSE 79–89; RESP 18–24; TEMP 36.7–37.7; O2SAT 95–99; BMI 23.7
[2025-03-29] MEDS: Lactated Ringers 1,000 ML 80 ML IVCONT ×2 (03:56→18:10)
--- NOTE | 2025-03-29 03:59 | PC.NURSE ---
Phlebotomy at bedside for morning labs, pt refusing. Hospitalist notified.
[2025-03-29 08:37] LABS: Hematocrit 40.6 % (42.0-52.0); Hemoglobin 14.2 g/dl (14.0-18.0); Mean Corpuscular HGB Conc 35.0 g/dl (31.0-36.0); Mean Corpuscular Hemoglobin 30.7 pg (27.0-33.0); Mean Corpuscular Volume 87.7 fL (80.0-98.0); NRBC Abs Auto 0.000 X10*3/uL (0.0-0.012); NRBC Pct Auto 0.0 /100WBC (0.0-0.2); Platelet Count 261 X10*3/uL (160-400); Red Blood Count 4.63 X10*6/uL (4.60-5.80); White Blood Count 14.3 X10*3/uL (4.8-10.8)
[2025-03-29 08:43] LABS: INTERNATIONAL NORM RATIO 1.1 (0.9-1.1); Prothrombin Time 12.6 SEC (10.9-12.4)
[2025-03-29 09:06] LABS: Alanine Aminotransferase 18 U/L (0-40); Albumin Level 3.9 g/dL (3.5-5.0); Alkaline Phosphatase 51 U/L (39-117); Anion Gap 11 (12-20); Aspartate Amino Transferase 25 U/L (5-37); Blood Urea Nitrogen 14 mg/dL (9-16); Calcium 8.5 mg/dL (8.4-10.2); Carbon Dioxide 24 mmol/L (22-29); Chloride 106 mmol/L (96-108); Creatinine Clr Calc Pharmacy 128.7; Estimated Glomerular Filt Rate > 60; Magnesium 2.0 mg/dL (1.6-2.6); Potassium 3.7 mmol/L (3.3-5.1); Sodium 137 mmol/L (135-145); Total Protein 6.9 g/dL (6.5-8.0)
[2025-03-29] MEDS: 0.9 % Sodium Chloride Flush 3 ML SYRINGE IVFLUSH ×2 (09:47→20:15)
--- NOTE | 2025-03-29 09:52 | PC.NURSE ---
Patient not walking up for oral medications. MD notified. Okay to hold AM oral tablets.
--- NOTE | 2025-03-29 09:55 | P.PNIM_ITS ---
Subjective Subjective Date of Service: 03/29/25 Interval History: sleepy Physical Exam 2 Vital Signs: Vital Signs: Last Vital Signs Temp 98.6 F 03/29/25 08:35 Pulse 80 03/29/25 08:35 Resp 18 03/29/25 08:35 BP 175/99 H 03/29/25 08:35 Pulse Ox 98 03/29/25 08:35 O2 Del Method Room Air 03/29/25 08:35 BMI result Body Mass Index 23.7 Lethargic oriented to person and place, ill-appearing but easily arousable, non participatory, diaphoretic, multiple skin lesions Objective Data Active Medications Acetaminophen (Acetaminophen 325 Mg Tablet) 650 mg PO Q6H PRN PRN Reason: Pain, Mild 1-3,fever,headache Last Admin: 03/28/25 16:18 Dose: 650 mg Documented By: NEY Atorvastatin Calcium (Atorvastatin Calcium 20 Mg Tablet) 20 mg PO BEDTIME [facility] Last Admin: 03/28/25 22:29 Dose: 20 mg Documented By: NEY Calcium Carbonate (Calcium Carbonate 750 Mg Tab.Chew) 750 mg PO Q4H PRN PRN Reason: Heartburn Ceftriaxone Sodium (Ceftriaxone Sodium 1 Gm Vial) 1 gm IVPUSH Q24H [facility] Last Admin: 03/29/25 09:40 Dose: 1 gm Documented By: MORIS Diazepam (Diazepam 10 Mg/2 Ml Cartridge) 5 mg IVPUSH Q4H PRN PRN Reason: Anxiety Enoxaparin Sodium (Enoxaparin Sodium 40 Mg/0.4 Ml Syringe) 40 mg SUBCUT Q24H [facility] Last Admin: 03/29/25 09:40 Dose: 40 mg Documented By: MORIS Fenofibrate (Fenofibrate 160 Mg Tablet) 160 mg PO DAILY [facility] Last Admin: 03/29/25 09:51 Dose: Not Given Documented By: MORIS Non-Admin Reason: Physician Held Med Folic Acid (Folic Acid 1 Mg Tablet) 1 mg PO DAILY [facility] Stop: 04/01/25 08:59 Last Admin: 03/29/25 09:51 Dose: Not Given Documented By: MORIS Non-Admin Reason: Physician Held Med Azithromycin 500 mg/ Sodium (Chloride) 250 mls @ 125 mls/hr IV Q24H [facility] Last Admin: 03/29/25 09:44 Dose: 125 mls/hr Documented By: MORIS Lactated Ringer's (Lr) 1,000 mls @ 80 mls/hr IVCONT .[id number] [facility] Last Admin: 03/29/25 03:56 Dose: 80 mls/hr Documented By: JOSE Vancomycin HCl 1,000 mg/ (Sodium Chloride) 270 mls @ 270 mls/hr IV Q12H [facility] Last Admin: 03/29/25 08:25 Dose: 270 mls/hr Documented By: MORIS Lorazepam (Lorazepam 1 Mg Tablet) 1 mg PO Q4H PRN PRN Reason: Breakthrough alcohol withdrawa Stop: 04/01/25 19:52 Lorazepam (Lorazepam 1 Mg Tablet) 1 mg PO Q4H [facility]; Taper Stop: 04/01/25 21:59 Last Admin: 03/29/25 05:00 Dose: Not Given Documented By: JOSE Non-Admin Reason: Patient Asleep Magnesium Hydroxide (Milk Of Magnesia 30 Ml Oral.Susp) 30 ml PO DAILY PRN PRN Reason: Constipation Melatonin (Melatonin 3 Mg Tablet) 6 mg PO BEDTIME PRN PRN Reason: Insomnia Multivitamins/Vitamin C (Multivitamin Tablet) 1 tab PO DAILY [facility] Stop: 04/01/25 08:59 Last Admin: 03/29/25 09:51 Dose: Not Given Documented By: MORIS Non-Admin Reason: Physician Held Med Pharmacy Consult (Consult Rx Vancomycin Dosing) 1 each MISCELLANE DAILY PRN PRN Reason: Consult order Sodium Chloride (0.9 % Sodium Chloride Flush 3 Ml Syringe) 3 ml IVFLUSH QSHIFT [facility] Last Admin: 03/29/25 09:47 Dose: 3 ml Documented By: MORIS Thiamine HCl (Thiamine Hcl 100 Mg Tablet) 100 mg PO DAILY [facility] Stop: 04/01/25 08:59 Last Admin: 03/29/25 09:52 Dose: Not Given Documented By: MORIS Non-Admin Reason: Physician Held Med Labs 03/29/25 08:23 03/29/25 08:23 Labs: Laboratory Results - last 24 hr 03/28/25 03/28/25 03/28/25 12:50 14:15 14:21 MCV 87.4 MCH 30.6 MCHC 35.0 RDW 13.0 Plt Count 291 MPV 8.5 L Immature Gran % (Auto) 0.4 Neut % (Auto) 80.8 H Lymph % (Auto) 10.3 L [place] % (Auto) 7.9 Eos % (Auto) 0.5 Baso % (Auto) 0.1 Lymph # (Auto) 1.7 [place] # (Auto) 1.3 H Eos # (Auto) 0.1 Baso # (Auto) 0.0 Abs Immat Gran (auto) 0.07 H Absolute Neuts (auto) 13.1 H Absolute Nucleated RBC 0.000 Nucleated RBC % (auto) 0.0 PT INR Anion Gap 14 Estim Creat Clear Calc 93.4 Estimated GFR > 60 Random Glucose 106 Lactic Acid Calcium 9.5 Magnesium Total Bilirubin 0.4 Direct Bilirubin 0.2 AST 41 H ALT 23 Alkaline Phosphatase 61 Troponin I High Sens < 2.7 Total Protein 8.4 H Albumin 4.9 Lipase 23 Urine Color Yellow Urine Appearance Clear Urine pH 5.5 Ur Specific [place] 1.020 Urine Protein Negative Urine Glucose (UA) Negative Urine Ketones Negative Urine Blood Negative Urine Nitrite Negative Ur Leukocyte Esterase Negative Urine Opiates Screen Not Detected Ur Buprenorphine Scrn Not Detected Ur Oxycodone Screen Not Detected Urine Methadone Screen Not Detected Urine Fentanyl Screen Not Detected Ur Barbiturates Screen Not Detected Ur Phencyclidine Scrn Not Detected Ur Amphetamines Screen Not Detected U Benzodiazepines Scrn POSITIVE H Urine Cocaine Screen POSITIVE H U Marijuana (THC) Screen Not Detected 03/28/25 03/29/25 15:45 08:23 MCV 87.7 MCH 30.7 MCHC 35.0 RDW 13.1 Plt Count 261 MPV 8.7 L Immature Gran % (Auto) Neut % (Auto) Lymph % (Auto) [place] % (Auto) Eos % (Auto) Baso % (Auto) Lymph # (Auto) [place] # (Auto) Eos # (Auto) Baso # (Auto) Abs Immat Gran (auto) Absolute Neuts (auto) Absolute Nucleated RBC 0.000 Nucleated RBC % (auto) 0.0 PT 12.6 H INR 1.1 Anion Gap 11 L Estim Creat Clear Calc 128.7 Estimated GFR > 60 Random Glucose 116 H Lactic Acid 1.2 Calcium 8.5 D Magnesium 2.0 Total Bilirubin 0.9 Direct Bilirubin 0.2 AST 25 ALT 18 Alkaline Phosphatase 51 Troponin I High Sens Total Protein 6.9 Albumin 3.9 Lipase Urine Color Urine Appearance Urine pH Ur Specific [place] Urine Protein Urine Glucose (UA) Urine Ketones Urine Blood Urine Nitrite Ur Leukocyte Esterase Urine Opiates Screen Ur Buprenorphine Scrn Ur Oxycodone Screen Urine Methadone Screen Urine Fentanyl Screen Ur Barbiturates Screen Ur Phencyclidine Scrn Ur Amphetamines Screen U Benzodiazepines Scrn Urine Cocaine Screen U Marijuana (THC) Screen Assessment and Plan (1) Bipolar depression: Status: Acute Plan 50M PMH polysubstance dependence (currently smokes crack, no longer using iv opiates), HCV s/p partial treatment, bipolar disorder, hypertrihylceridemia, presented with AMS Sepsis and acute metabolic encephalopathy due to pneumonia, possible aspiration vanc, Ceftriaxone azithromycin, follow up cultures, ct chest Polysubstance dependence Addiction eval History of hepatitis-C status post partial treatment Check hepatitis-C viral load Hypertriglyceridemia Continue statin and fenofibrate Suspect patient has been noncompliant with all meds over the last few months Bipolar disorder Likely will restart mood stabilizers when more alert DVT prophylaxis with Lovenox Full Code reason for continued hospitalization:sepsis Quality Stroke Does the patient have a stroke diagnosis?: No VTE Prior VTE?: No VTE Risk Level:: Medical - moderate - high VTE Device Contraindication: Treatment Not Indicated VTE Drug Contraindication: N/A - Med Ordered
--- NOTE | 2025-03-29 09:55 | MHC.CM.PN ---
This CM attempted to meet with pt, he was asleep and unable to engage in conversation, will attempt to meet with pt later today.
[2025-03-29] MEDS: diazePAM 10 MG/2 ML CARTRIDGE 5 MG IVPUSH (12:02)
--- NOTE | 2025-03-29 15:52 | MHC.CM.PN ---
This CM attempted to meet with pt again, pt was sleeping, he opened his eyes and asked this development writer to come back later.
--- NOTE | 2025-03-29 16:26 | P.EN_ITS ---
Event Note Date of Service: 03/29/25 Event Note: Addiction consult placed for patient with history of ARTI Chart reviewed, medical policy specialist attempted to meet with patient, however he was reportedly very drowsy--family also present in room and shushing RN as she attempted to meet with patient. UDS+cocaine and cannabis. Will attempt to meet with patient in AM Time Spent With Patient Time: Total time managing care of this patient today ____ minutes.
[2025-03-30] VITALS: BP 123/67; PULSE 98; RESP 16; TEMP 36.8; O2SAT 95
[2025-03-30] MEDS: Lactated Ringers 1,000 ML 80 ML IVCONT (03:56)
[2025-03-30 06:28] LABS: Hematocrit 41.0 % (42.0-52.0); Hemoglobin 14.2 g/dl (14.0-18.0); Mean Corpuscular HGB Conc 34.6 g/dl (31.0-36.0); Mean Corpuscular Hemoglobin 30.7 pg (27.0-33.0); Mean Corpuscular Volume 88.6 fL (80.0-98.0); NRBC Abs Auto 0.000 X10*3/uL (0.0-0.012); NRBC Pct Auto 0.0 /100WBC (0.0-0.2); Platelet Count 273 X10*3/uL (160-400); Red Blood Count 4.63 X10*6/uL (4.60-5.80); White Blood Count 13.0 X10*3/uL (4.8-10.8)
[2025-03-30 06:40] LABS: Anion Gap 12 (12-20); Blood Urea Nitrogen 9 mg/dL (9-16); Calcium 8.6 mg/dL (8.4-10.2); Carbon Dioxide 24 mmol/L (22-29); Chloride 103 mmol/L (96-108); Creatinine Clr Calc Pharmacy 111.8; Estimated Glomerular Filt Rate > 60; Magnesium 2.1 mg/dL (1.6-2.6); Potassium 3.7 mmol/L (3.3-5.1); Sodium 135 mmol/L (135-145)
[2025-03-30 08:00] VITALS: BP 125/73; PULSE 83; RESP 22; TEMP 36.2; O2SAT 97
--- NOTE | 2025-03-30 09:19 | MHC.CM.PN ---
This CM met with pt with the assistance of a [employer]. Pt lives alone at home, self-care. He will arrange his own transport home at discharge. Education provided on HCP, pt declines at this time. Pt states he would like to leave today. PCP: Dr. Jean Valderrama
--- NOTE | 2025-03-30 09:49 | PM.DS ---
DS: Providers Provider Date of Service: 03/30/25 Date of admission: 03/28/25 15:25 Date of discharge: 03/30/25 Primary care physician: [facility] Consults: 03/28/25 15:46 Addiction Medicine Provider Routine Consulting Provider: Gulshan Unger Reason for consultation: crack DS: Diagnosis Discharge Diagnosis (1) Bipolar depression: Status: Acute DS: Summary Hospital Course Hospital Course: from initial hpi: 50M PMH polysubstance dependence (currently smokes crack, no longer using iv opiates), HCV s/p partial treatment, bipolar disorder, hypertrihylceridemia, presented with AMS. patient's family lives downstairs from him, were concerned so called EMS, patient found to be very lethargic, not responsive to narcan, noted to have new skin tear lesions on face and lower extremities that were not present day before. in ED patient is lethargic but easily rousable, meeting SIRS with tachycardia, leukocytosis, cxr with left sided opacities. hospital course: Patient was admitted for sepsis acute metabolic encephalopathy due to pneumonia and possible aspiration. Was treated with vancomycin, ceftriaxone, azithromycin, blood cultures were negative so vancomycin was discontinued. CT chest showed bilateral pneumonia. For polysubstance dependence was seen by Addiction but did not participate. Patient's mental status returned to baseline. Plan was to continue IV antibiotics until full defervescence and then transitioning to p.o. however patient was not interested in staying inpatient. Decided to leave against medical advice. He was able to articulate understanding of the risks of doing so including . For history of hepatitis-C status post partial treatment viral load was drawn and is pending. For hypertriglyceridemia patient is supposed to be on fibrate and statin, for bipolar disorder he is no longer on mood stabilizers he should follow up outpatient for this. Time Attestation Discharge Coordination Time (in mins): 32 Quality: Safe Use of Opioids Does Pt have an Active Cancer Diagnosis on the Problem List?: No Quality: Stroke Does the patient have a stroke diagnosis?: No Physical Exam Vital Signs: Vital Signs: Last Vital Signs Temp 97.1 F 03/30/25 08:00 Pulse 83 03/30/25 08:00 Resp 22 H 03/30/25 08:00 BP 125/73 03/30/25 08:00 Pulse Ox 97 03/30/25 08:00 O2 Del Method Room Air 03/30/25 08:00 BMI result Body Mass Index 23.7 alert oriented to person and place and time, multiple skin lesions DS: Data Data Completed and Pending Labs on day of discharge: Laboratory Results - last 24 hr 03/30/25 06:07 WBC 13.0 H RBC 4.63 Hgb 14.2 Hct 41.0 L MCV 88.6 MCH 30.7 MCHC 34.6 RDW 12.6 Plt Count 273 MPV 8.6 L Absolute Nucleated RBC 0.000 Nucleated RBC % (auto) 0.0 Sodium 135 Potassium 3.7 Chloride 103 Carbon Dioxide 24 Anion Gap 12 BUN 9 Creatinine 0.61 Estim Creat Clear Calc 111.8 Estimated GFR > 60 Random Glucose 113 Calcium 8.6 Magnesium 2.1 Preliminary micro results at discharge 03/28/25 15:45 Blood Culture - Preliminary Blood - Venous No growth after 24 hours. 03/28/25 15:45 Blood Culture - Preliminary Blood - Venous No growth after 24 hours. Discharge Plan Discharge Anticipated Discharge Date/Time: 03/30/25 09:47 Patient Disposition: Left Against Medical Advice Discharge Diagnosis: sepsis, pna Referrals: [facility] [Primary Care Provider, Medical] - 1 Week Discharge Medications: New cefuroxime axetil 500 mg tablet 500 mg PO BID Qty: 10 0RF azithromycin 500 mg tablet 500 mg PO DAILY 5 Days Qty: 5 0RF Discharge Orders: Discharge Order (Routine); Ordered 03/30/25 Ordered By: Emmanuel Jay Diet: Advance to usual diet Stand Alone Forms: Patient Portal Discharge page Print Language: Maltese Care Plan Goals: recovery Health Concerns: pna Plan of Treatment: 5 more days ceftin, azithro, no drugs Assessment: see above
--- NOTE | 2025-03-30 10:01 | PC.NURSE ---
pt left AMA. md and RN spoke with pt with coater smoking pipe at bedside. family was also as bedside. iv's and tele removed. d/c paperwork and belongings given to pt's family
--- NOTE | 2025-03-30 11:00 | MHC.CM.PN ---
Pt left AMA.
[2025-03-30 16:29] LABS: HCV Log PCR <1.18 NOT DETECTED Log IU/mL (NOT DETECTED); HepC Viral Load <15 NOT DETECTED IU/mL (NOT DETECTED)
== END 2025-03-30 10:02 | disposition left against medical advice (07) | DRG 720 ==
LOC: HO.ED 15:25 → HO.EDOVER 15:31 → HO.S3 19:31 → HO.EDOVER 20:14 → HO.IMC 03-29 06:52
PROVIDERS: Admitting Provider Internal Medicine; Emergency Provider Emergency Medicine; Visit Provider Internal Medicine
DX: A41.9 Sepsis, unspecified organism (principal); J69.0 Pneumonitis due to inhalation of food and vomit; G93.41 Metabolic encephalopathy; F31.9 Bipolar disorder, unspecified; F17.210 Nicotine dependence, cigarettes, uncomplicated; Z71.6 Tobacco abuse counseling; F19.20 Other psychoactive substance dependence, uncomplicated; Z86.19 Personal history of other infectious and parasitic diseases; E78.1 Pure hyperglyceridemia; Z98.1 Arthrodesis status
CPT/HCPCS: 36415; 70450; 71045; 71250; 80048; 80076; 80307; 81003; 83605; 83690; 83735; 84484; 85025; 85027; 85610; 87040; 87522; 93005; 99285; J0456; J0696; J1271; J1650; J1885; J2405; J2543; J3360; J3374; J7120

== ENCOUNTER → 2025-03-28 12:27 | Outpatient (BNV) | payer MEDICAID, SELFPAY | PROVIDERS: Admitting Provider Internal Medicine; Emergency Provider Emergency Medicine; Visit Provider Radiology Diagnostic Radiology | DX: R41.82 Altered mental status, unspecified (principal); R91.8 Other nonspecific abnormal finding of lung field; W19.XXXA Unspecified fall, initial encounter | CPT/HCPCS: 70450; 71045 ==

== ENCOUNTER → 2025-03-28 12:27 | Outpatient (BNV) | payer MEDICAID, SELFPAY | PROVIDERS: Admitting Provider Internal Medicine; Emergency Provider Emergency Medicine; Visit Provider Internal Medicine Cardiovascular Disease | DX: R00.0 Tachycardia, unspecified (principal) | CPT/HCPCS: 93010 ==

== ENCOUNTER 2025-03-28 15:25 | Outpatient (BNV) | payer MEDICAID, SELFPAY | END 2025-03-29 10:44 | PROVIDERS: Admitting Provider Internal Medicine; Emergency Provider Emergency Medicine; Visit Provider Radiology Diagnostic Radiology | DX: J18.9 Pneumonia, unspecified organism (principal) | CPT/HCPCS: 71250 ==

== ENCOUNTER → 2025-03-28 15:25 | Outpatient (BNV) | payer MEDICAID, SELFPAY | PROVIDERS: Admitting Provider Internal Medicine; Emergency Provider Emergency Medicine; Visit Provider Internal Medicine | DX: F31.9 Bipolar disorder, unspecified (principal) | CPT/HCPCS: 99223; 99233 ==